=== PATIENT | female | born 1935 | race Asian ===

== ENCOUNTER 2018-08-19 15:34 | Observation (INO) | payer MEDICARE ==
[~2018-08-19] VITALS: Ht 160 cm; Wt 53.5 kg
[~2018-08-19 15:34] MED LIST: Z.0.AMLODIPINE BESYL PO; Z.0.GEMFIBROZIL600 M PO; Z.1.DIOVAN HCT 1601 PO
--- OUTSIDE RECORDS SUMMARY | 2018-08-19 15:38 | XMS REPORT | Summary of Care ---
Author Organization Unknown Address Unknown Phone Unavailable Encounter HQ Encntr_alijose(FIN) [id number] Date(s): 04/10/15 - 04/10/15 [facility] Outpatient Imaging [address] [phone] Discharge Disposition: Home Physician Attending: Jalil Rutherford MD Vital Signs No data available for this section Problem List Condition Effective Dates Status Health Status Informant AA (aortic Resolved aneurysm)(Confirmed) Chronic Resolved constipation(Confirm ed) GERD Resolved (gastroesophageal reflux disease)(Confirmed) High Resolved triglycerides(Confir med) HTN Resolved (hypertension)(Confi rmed) Hypothyroidism(Confi Resolved rmed) Irritable Resolved bladder(Confirmed) Weight Active loss(Confirmed) Allergies, Adverse Reactions, Alerts Substance Reaction Severity Status NKDA Active Medications No data available for this section Results No data available for this section Immunizations No data available for this section Procedures Procedure Date Related Diagnosis Body Site Total thyroidectomy Social History Social History Type Response Smoking Status Never smoker; Exposure to Tobacco Smoke None; Cigarette Smoking Last 365 Days No; Reg Smoking Cessation Counseling No Assessment and Plan No data available for this section
--- OUTSIDE RECORDS SUMMARY | 2018-08-19 15:38 | XMS REPORT | Summary of Care ---
Author Author [facility] Organization [facility] Address Unknown Phone Unavailable Encounter HQ Encntr_alijose(FIN) [id number] Date(s): 11/26/16 - 11/26/16 [facility] [address] [place] [address]- Discharge Disposition: Home or Self Care Attending Physician: Gianna Nogueira MD Admitting Physician: Gianna Nogueira MD Vital Signs No data available for [...]
--- OUTSIDE RECORDS SUMMARY | 2018-08-19 15:38 | XMS REPORT | Summary of Care ---
Author Author [facility] Address Unknown Phone Unavailable Encounter HQ Encntr_alias(FIN) [id number] Date(s): 08/02/17 - 08/02/17 [facility] [address] [place] [address]- [phone] Discharge Disposition: Home or Self Care Attending Physician: Gianna Nogueira MD Vital Signs No [...]
--- OUTSIDE RECORDS SUMMARY | 2018-08-19 15:38 | XMS REPORT | Summary of Care ---
Author Organization Unknown Address Unknown Phone Unavailable Encounter HQ Mari(ALEXANDER) [id number] Date(s): 10/26/14 - 10/30/14 [facility] [address] Discharge Disposition: Home Physician Attending: Dylan Gonzalez MD Physician Admitting: Dylan Gonzalez MD Reason for Visit HYPONATREMIA, HYPOKALEMIA, GENERALIZED WEAKNESS Vital Signs 1 2 3 Most recent to oldest [Reference Range]: 172.72 cm (10/26/14 9:03 AM) Height 47.008 kg (10/30/14 5:06 AM) 50.006 kg (10/29/14 4:00 AM) Current Weight 97.4 DegF (10/30/14 8:22 AM) 98.2 DegF (10/30/14 4:00 AM) 98.5 DegF (10/30/14 12:00 AM) Temperature Oral [96.4-99.1 DegF] 143 mmHg *HI* (10/30/14 8:22 AM) 152 mmHg *HI* (10/30/14 4:00 AM) 160 mmHg *HI* (10/30/14 12:00 AM) Systolic Blood Pressure [90-140 mmHg] 67 mmHg (10/30/14 8:22 AM) 74 mmHg (10/30/14 4:00 AM) 79 mmHg (10/30/14 12:00 AM) Diastolic Blood Pressure [60-90 mmHg] 16 BRMIN (10/30/14 8:22 AM) 16 BRMIN (10/30/14 4:00 AM) 16 BRMIN (10/30/14 12:00 AM) Respiratory Rate [14-20 BRMIN] 64 bpm (10/30/14 8:22 AM) 66 bpm (10/30/14 4:00 AM) 65 bpm (10/30/14 12:00 AM) Peripheral Pulse Rate [60-100 bpm] 52 kg (10/26/14 1:10 PM) Weight Problem List Condition Effective Dates Status Health Status Informant AA (aortic Resolved aneurysm)(Confirmed) Chronic Resolved constipation(Confirm ed) GERD Resolved (gastroesophageal reflux disease)(Confirmed) High Resolved triglycerides(Confir med) HTN Resolved (hypertension)(Confi rmed) Hypothyroidism(Confi Resolved rmed) Irritable Resolved bladder(Confirmed) Weight Active loss(Confirmed) Allergies, Adverse Reactions, Alerts Substance Reaction Severity Status NKDA Active Medications aspirin 81 mg tablet, enteric coated 81 mg=1 tab, PO, Daily, # 0 tab, 0 Refill(s) Start Date: 10/26/14 Status: Ordered BD Normal Saline Flush 5 mL, Route: IV, Drug Form: INJ, PRN, PRN Line Flush, Start date: 10/26/14 16:19 :00, Duration: 30 day, Stop date: 11/25/14 16:18:00 Notes: (Same as: BD Posiflush) Start Date: 10/26/14 Stop Date: 10/30/14 Status: Discontinued Diovan 160 mg oral tablet 160 mg=1 tab, PO, Daily, # 30 tab, 0 Refill(s) Start Date: 10/26/14 Status: Ordered heparin 5,000 unit, 1 mL, Route: SUB-Q, Drug form: INJ, Q12H, Dosing Weight 52, kg, Star t date: 10/26/14 21:00:00, Duration: 30 day, Stop date: 11/25/14 9:00:00 Notes: porcine heparin Start Date: 10/26/14 Stop Date: 10/30/14 Status: Discontinued K-Dur 20 40 mEq, 2 tab, Route: PO, Drug form: ERTAB, ONCE, Dosing Weight 52, kg, Start da te: 10/26/14 15:08:00, Stop date: 10/26/14 15:08:00 Notes: (Same as: K-Dur 20)"Do Not Crush" With food and full glass of water Start Date: 10/26/14 Stop Date: 10/26/14 Status: Completed K-Dur 20 20 mEq, 1 tab, Route: PO, Drug form: ERTAB, BID, Dosing Weight 52, kg, Start abdirahman e: 10/27/14 17:00:00, Duration: 30 day, Stop date: 11/26/14 9:00:00 Notes: (Same as: K-Dur 20)"Do Not Crush" With food and full glass of water Start Date: 10/27/14 Stop Date: 10/29/14 Status: Discontinued K-Dur 20 40 mEq, 2 tab, Route: PO, Drug form: ERTAB, ONCE, Dosing Weight 52, kg, Start da te: 10/27/14 14:24:00, Stop date: 10/27/14 14:24:00 Notes: (Same as: K-Dur 20)"Do Not Crush" With food and full glass of water Start Date: 10/27/14 Stop Date: 10/27/14 Status: Completed lactulose 10 g/15 mL oral syrup 10 gm, 15 mL, Route: PO, Drug Form: SYRP, Dosing Weight 52, kg, BID, Start date: 10/29/14 11:30:00, Duration: 30 day, Stop date: 11/28/14 9:00:00 Notes: (Same as:Chronulac) Start Date: 10/29/14 Stop Date: 10/30/14 Status: Discontinued levothyroxine 88 microgram, 1 tab, Route: PO, Drug form: TAB, Q630AM, Dosing Weight 52, kg, St art date: 10/27/14 9:00:00, Stop date: 11/25/14 6:30:00 Notes: Take 1 hour before or 2 hours after meal; Enteral feeds may interefere wi th the absorption of this medication. (Same as:Synthroid) Start Date: 10/27/14 Stop Date: 10/30/14 Status: Discontinued levothyroxine 100 mcg (0.1 mg) oral tablet 100 microgram=1 tab, PO, Daily, # 60 tab, 0 Refill(s) Start Date: 10/26/14 Status: Ordered Lopid 600 mg, 1 tab, Route: PO, Drug form: TAB, Q48H, Dosing Weight 52, kg, Start date : 10/26/14 14:00:00, Duration: 30 day, Stop date: 11/23/14 14:00:00 Notes: (Same as: Lopid) Start Date: 10/26/14 Stop Date: 10/30/14 Status: Discontinued Lopid 600 mg oral tablet 600 mg=1 tab, PO, Q48H, # 60 tab, 0 Refill(s) Start Date: 10/26/14 Status: Ordered MiraLax oral powder for reconstitution 17 gm, PO, Daily, # 255 gm, 0 Refill(s) Start Date: 10/26/14 Status: Ordered morphine Sulfate 1 mg, 0.5 mL, Route: IV, Drug form: INJ, Q2H, Dosing Weight 52, kg, PRN Pain Sco re 7-10, Start date: 10/26/14 13:55:00, Duration: 30 day, Stop date: 11/25/14 13 :54:00 Notes: (Same as:MORPhine Sulfate) Start Date: 10/26/14 Stop Date: 10/30/14 Status: Discontinued Norvasc 5 mg, 1 tab, Route: PO, Drug form: TAB, Daily, Dosing Weight 52, kg, Start date: 10/27/14 9:00:00, Duration: 30 day, Stop date: 11/25/14 9:00:00 Notes: (Same as: Norvasc) Start Date: 10/27/14 Stop Date: 10/30/14 Status: Discontinued Norvasc 5 mg oral tablet 5 mg=1 tab, PO, Daily, # 30 tab, 0 Refill(s) Start Date: 10/26/14 Status: Ordered NS + KCL 20mEq/L 1000ml (Premix) 1,000 mL 1,000 mL, Rate: 75 ml/hr, Infuse over: 13.3 hr, Route: IV, Dosing Weight 52 kg, Total Volume: 1,000, Start date: 10/27/14 14:24:00, Duration: 30 day, Stop date: 11/26/14 14:23:00 Notes: PREMIX IV - Do Not Alter Start Date: 10/27/14 Stop Date: 10/28/14 Status: Discontinued NS 1000 mL 1,000 mL, Rate: 75 ml/hr, Infuse over: 13.3 hr, Route: IV, Dosing Weight 52 kg, Total Volume: 1,000, Start date: 10/27/14 14:13:00, Duration: 30 day, Stop date: 11/26/14 14:12:00 Start Date: 10/27/14 Stop Date: 10/27/14 Status: Discontinued omeprazole 20 mg, Route: PO, Drug form: DRC, Daily, Dosing Weight 52, kg, Start date: 10/27 9:00:00, Duration: 30 day, Stop date: 11/25/14 9:00:00 Start Date: 10/27/14 Stop Date: 10/26/14 Status: Discontinued omeprazole 20 mg oral delayed release capsule 20 mg=1 cap, PO, Daily, # 30 cap, 0 Refill(s) Start Date: 10/26/14 Stop Date: 11/25/14 Status: Ordered ondansetron 4 mg, 2 mL, Route: IVP, Drug form: INJ, ONCE, Dosing Weight 53.636, kg, Priority : STAT, Start date: 10/26/14 9:25:00, Stop date: 10/26/14 9:25:00 Notes: (Same as: Zofran) Start Date: 10/26/14 Stop Date: 10/26/14 Status: Completed Pepcid 20 mg, 1 tab, Route: PO, Drug form: TAB, Daily, Start date: 10/27/14 9:00:00, Du ration: 30 day, Stop date: 11/25/14 9:00:00 Notes: (Same as: Pepcid) Start Date: 10/27/14 Stop Date: 10/30/14 Status: Discontinued potassium chloride 40 mEq, 2 tab, Route: PO, Drug form: ERTAB, ONCE, Dosing Weight 52, kg, Start da te: 10/27/14 5:57:00, Stop date: 10/27/14 5:57:00 Notes: (Same as: K-Dur 20)"Do Not Crush" With food and full glass of water Start Date: 10/27/14 Stop Date: 10/27/14 Status: Completed potassium chloride 20 mEq, 100 mL, Route: IVPB, Drug form: INJ, Q2H, Dosing Weight 52, kg, Total do se=80 mEq, Start date: 10/26/14 14:00:00, Duration: 4 doses or times, Stop date: 10/26/14 20:00:00 Notes: (Same as: KCL) Infuse no faster than 10 mEq/hr if given peripherally.Rec ommended to use Electrolyte Replacement MPPPotassium level 2.5 - 3 mEq/L:Potass ium chloride 20mEq/100 ml IV infused over 2 hour x 4 doses. Total dose=80 mEqNot elizabeth team. Start Date: 10/26/14 Stop Date: 10/26/14 Status: Completed Protonix 40 mg, 1 tab, Route: PO, Drug form: ECTAB, Before Dinner, Start date: 10/26/14 1 6:30:00, Duration: 30 day, Stop date: 11/24/14 16:30:00 Notes: Tablet should not be chewed or crushed.(Same as: Protonix) Start Date: 10/26/14 Stop Date: 10/30/14 Status: Discontinued Saline Flush 0.9% 10 mL, Route: IVP, Drug Form: INJ, Dosing Weight 53.636, kg, PRN, PRN Line Flush , Start date: 10/26/14 9:25:00, Duration: 30 day, Stop date: 11/25/14 9:24:00 Notes: (Same as: BD Posiflush) Start Date: 10/26/14 Stop Date: 10/30/14 Status: Discontinued Sodium Chloride 0.9% (Bolus) IV 1,000 mL, 1,000 ml/hr, Infuse Over: 1 hr, Route: IV, 1,000, Drug form: INJ, ONCE , Priority: STAT, Dosing Weight 53.636 kg, Start date: 10/26/14 9:25:00, Duratio n: 1 doses or times, Stop date: 10/26/14 9:25:00 Start Date: 10/26/14 Stop Date: 10/26/14 Status: Completed Sodium Chloride 0.9% (Bolus) IV 1,000 mL, 1000 ml/hr, Infuse Over: 1 hr, Route: IV, 1,000, Drug form: INJ, ONCE, Priority: STAT, Dosing Weight 53.636 kg, Start date: 10/26/14 10:07:00, Duratio n: 1 doses or times, Stop date: 10/26/14 10:07:00 Start Date: 10/26/14 Stop Date: 10/26/14 Status: Completed Sodium Chloride 0.9% IV 25 mL, Route: IV, Start date: 10/26/14 16:19:00, Duration: 30 day, Stop date: 16:18:00, PRN Line Flush Start Date: 10/26/14 Stop Date: 10/30/14 Status: Discontinued Sodium Chloride 3% (Hypertonic) IV 125 mL + empty container 1 bag 125 mL, Rate: 25 ml/hr, Infuse over: 5 hr, Route: IV, Dosing Weight 52 kg, Total Volume: 125, Start date: 10/26/14 14:48:00, Duration: 1 doses or times, Stop da te: 10/27/14 0:47:00 Notes: " Start Date: 10/26/14 Stop Date: 10/26/14 Status: Completed Tylenol 650 mg, 2 tab, Route: PO, Drug form: TAB, Q6H, Dosing Weight 52, kg, PRN Pain Sc ore 1-3, Start date: 10/26/14 13:55:00, Duration: 30 day, Stop date: 11/25/14 13 :54:00 Notes: Do not exceed 4 gm/day. (Same as: Tylenol) Start Date: 10/26/14 Stop Date: 10/30/14 Status: Discontinued Zantac 150 oral tablet 150 mg=1 tab, PO, Daily, # 60 tab, 0 Refill(s) Start Date: 10/26/14 Status: Ordered Zantac 150 oral tablet 150 mg, 1 tab, Route: PO, Drug form: TAB, Daily, Dosing Weight 52, kg, Start abdirahman e: 10/27/14 9:00:00, Duration: 30 day, Stop date: 11/25/14 9:00:00 Start Date: 10/27/14 Stop Date: 10/26/14 Status: Discontinued Results ELECTROLYTES 1 2 3 Most recent to oldest [Reference Range]: 136 mEq/L (10/30/14 3:48 AM) 131 mEq/L *LOW* (10/29/14 6:28 AM) 131 mEq/L *LOW* (10/28/14 8:54 PM) Sodium Lvl [135-145 mEq/L] 4.6 mEq/L (10/30/14 3:48 AM) 4.2 mEq/L (10/29/14 6:28 AM) 4.0 mEq/L (10/28/14 8:54 PM) Potassium Lvl [3.5-5.1 mEq/L] 97 mEq/L (10/30/14 3:48 AM) 96 mEq/L (10/29/14 6:28 AM) 98 mEq/L (10/28/14 8:54 PM) Chloride Lvl [95-109 mEq/L] 30 mEq/L (10/30/14 3:48 AM) 28 mEq/L (10/29/14 6:28 AM) 24 mEq/L (10/28/14 8:54 PM) CO2 [24-32 mEq/L] 13.6 mEq/L (10/30/14 3:48 AM) 11.2 mEq/L (10/29/14 6:28 AM) 13.0 mEq/L (10/28/14 8:54 PM) AGAP [10.0-20.0 mEq/L] CHEM PANEL 1 2 3 Most recent to oldest [Reference Range]: 0.6 mg/dL (10/30/14 3:48 AM) 0.5 mg/dL (10/29/14 6:28 AM) 0.8 mg/dL (10/28/14 8:54 PM) Creatinine Lvl [0.5-1.4 mg/dL] 86 mL/min/1.73m2 1 *NA* (10/30/14 3:48 AM) 92 mL/min/1.73m2 2 *NA* (10/29/14 6:28 AM) 70 mL/min/1.73m2 3 *NA* (10/28/14 8:54 PM) eGFR 12 mg/dL (10/30/14 3:48 AM) 9 mg/dL (10/29/14 6:28 AM) 10 mg/dL (10/28/14 8:54 PM) BUN [7-22 mg/dL] 34 *HI* (10/26/14 9:00 AM) B/C Ratio [6-25] 86 mg/dL 4 (10/30/14 3:48 AM) 110 mg/dL 5 *HI* (10/29/14 6:28 AM) 165 mg/dL 6 *HI* (10/28/14 8:54 PM) Glucose Lvl [70-99 mg/dL] 1.9 mg/dL *LOW* (10/26/14 8:23 PM) Uric Acid [2.5-7.0 mg/dL] 6.5 g/dL (10/26/14 9:00 AM) Total Protein [6.4-8.4 g/dL] 4.0 g/dL (10/26/14 9:00 AM) Albumin Lvl [3.5-5.0 g/dL] 2.5 g/dL (10/26/14 9:00 AM) Globulin [2.0-4.0 g/dL] 1.6 (10/26/14 9:00 AM) A/G Ratio [0.7-1.6] 8.9 mg/dL (10/30/14 3:48 AM) 8.0 mg/dL *LOW* (10/29/14 6:28 AM) 7.8 mg/dL *LOW* (10/28/14 8:54 PM) Calcium Lvl [8.5-10.5 mg/dL] 2.5 mg/dL (10/26/14 9:00 AM) Phosphorus [2.5-4.5 mg/dL] 2.0 mg/dL (10/29/14 6:28 AM) 2.1 mg/dL (10/28/14 4:30 AM) 2.0 mg/dL (10/27/14 3:19 AM) Magnesium Lvl [1.8-2.4 mg/dL] 46 unit/L (10/26/14 9:00 AM) ALT [0-65 unit/L] 52 unit/L *HI* (10/26/14 9:00 AM) AST [0-37 unit/L] 44 unit/L (10/26/14 9:00 AM) Alk Phos [39-136 unit/L] 2.3 mg/dL *HI* (10/26/14 9:00 AM) Bili Total [0.2-1.3 mg/dL] 249 mOsm/kg *LOW* (10/26/14 8:23 PM) Osmolality [280-300 mOsm/kg] 1Result Comment: The eGFR is calculated using the CKD-EPI formula. In most young, healthy individuals the eGFR will be >90 mL/min/1.73m2. The eGFR declines with age. An eGFR of 60-89 may be normal in some populations, particularly the elderly, for whom the CKD-EPI formula has not been extensively validated. Use of the eGFR is not recommended in the following populations: Individuals with unstable creatinine concentrations, including patients and those with serious co-morbid conditions. Patients with extremes in muscle mass or diet. The data above are obtained from the National Kidney Disease Education Program ( NKDEP) which additionally recommends that when the eGFR is used in patients with extremes of body mass index for purposes of drug dosing, the eGFR should be mul tiplied by the estimated BMI. 2Result Comment: The eGFR is calculated using the CKD-EPI formula. In most young, healthy individuals the eGFR will be >90 mL/min/1.73m2. The eGFR declines with age. An eGFR of 60-89 may be normal in some populations, particularly the elderly, for whom the CKD-EPI formula has not been extensively validated. Use of the eGFR is not recommended in the following populations: Individuals with unstable creatinine concentrations, including patients and those with serious co-morbid conditions. Patients with extremes in muscle mass or diet. The data above are obtained from the National Kidney Disease Education Program ( NKDEP) which additionally recommends that when the eGFR is used in patients with extremes of body mass index for purposes of drug dosing, the eGFR should be mul tiplied by the estimated BMI. 3Result Comment: The eGFR is calculated using the CKD-EPI formula. In most young, healthy individuals the eGFR will be >90 mL/min/1.73m2. The eGFR declines with age. An eGFR of 60-89 may be normal in some populations, particularly the elderly, for whom the CKD-EPI formula has not been extensively validated. Use of the eGFR is not recommended in the following populations: Individuals with unstable creatinine concentrations, including patients and those with serious co-morbid conditions. Patients with extremes in muscle mass or diet. The data above are obtained from the National Kidney Disease Education Program ( NKDEP) which additionally recommends that when the eGFR is used in patients with extremes of body mass index for purposes of drug dosing, the eGFR should be mul tiplied by the estimated BMI. 4Interpretive Data: Adult reference range values reflect the clinical guidelines of the [place] [employer]. 5Interpretive Data: Adult reference range values reflect the clinical guidelines of the [place] [employer]. 6Interpretive Data: Adult reference range values reflect the clinical guidelines of the [place] [employer]. CARDIAC ENZYMES 1 2 3 Most recent to oldest [Reference Range]: 996 unit/L *HI* (10/26/14 9:00 AM) Total CK [12-191 unit/L] 9.0 ng/mL *HI* (10/26/14 9:00 AM) CK MB [0.5-3.6 ng/mL] 0.9 (10/26/14 9:00 AM) CK MB Index [0.0-2.5] 0.02 ng/mL (10/26/14 9:00 AM) Troponin-I [0.00-0.40 ng/mL] 61 pg/mL 7 (10/26/14 9:00 AM) BNP [<=100 pg/mL] 7Interpretive Data: Elevated results are in line with increasing severity of congestive heart failure. Minor elevations between 100 and 300 may be seen with Myocardial Ischemia, Sodium retaining drugs, and compensated/treated heart failure. THYROID PANEL 1 2 3 Most recent to oldest [Reference Range]: 1.47 ng/dL *HI* (10/27/14 3:19 AM) T4 Free [0.76-1.46 ng/dL] 0.021 uIU/mL *LOW* (10/26/14 8:23 PM) TSH [0.360-3.740 uIU/mL] URINE CHEM 1 2 3 Most recent to oldest [Reference Range]: 50.2 mg/dL 8 *NA* (10/27/14 4:52 PM) 110.5 mg/dL 9 *NA* (10/26/14 9:00 AM) U Creatinine 32 mEq/L 10 *NA* (10/27/14 4:52 PM) 36 mEq/L 11 *NA* (10/26/14 9:00 AM) U Sodium 25.7 mEq/L 12 *NA* (10/27/14 4:52 PM) 51.5 mEq/L 13 *NA* (10/26/14 9:00 AM) U Potassium 359 mOsm/kg (10/27/14 4:52 PM) 617 mOsm/kg (10/26/14 9:00 AM) U Osmolality [300-800 mOsm/kg] 8Interpretive Data: No established reference ranges. 9Interpretive Data: No established reference ranges. 10Interpretive Data: No established reference ranges. 11Interpretive Data: No established reference ranges. 12Interpretive Data: No established reference ranges. 13Interpretive Data: No established reference ranges. URINE AND STOOL 1 2 3 Most recent to oldest [Reference Range]: Clear (10/26/14 9:00 AM) UA Turbidity [Clear] Yellow *NA* (10/26/14 9:00 AM) UA Color [Yellow] 6.5 (10/26/14 9:00 AM) UA pH [5.0-8.0] 1.016 (10/26/14 9:00 AM) UA Spec Grav [<=1.030] 70 mg/dL *ABN* (10/26/14 9:00 AM) UA Glucose [Negative mg/dL] Moderate *ABN* (10/26/14 9:00 AM) UA Blood [Negative] 20 mg/dL *ABN* (10/26/14 9:00 AM) UA Ketones [Negative mg/dL] 50 mg/dL *ABN* (10/26/14 9:00 AM) UA Protein [Negative mg/dL] <=1.0 mg/dL *NA* (10/26/14 9:00 AM) UA Urobilinogen [0.1-1.0 mg/dL] Negative *NA* (10/26/14 9:00 AM) UA Bili [Negative] Negative (10/26/14 9:00 AM) UA Leuk Est [Negative] Negative (10/26/14 9:00 AM) UA Nitrite [Negative] 2 /HPF (10/26/14 9:00 AM) UA WBC [0-5 /HPF] 42 /HPF *HI* (10/26/14 9:00 AM) UA RBC [0-2 /HPF] None Seen *NA* (10/26/14 9:00 AM) UA Sq Epi Few /LPF *NA* (10/26/14 9:00 AM) UA Mucus [None Seen /LPF] HEMATOLOGY 1 2 3 Most recent to oldest [Reference Range]: 4.6 K/CMM (10/29/14 6:28 AM) 6.6 K/CMM (10/27/14 3:19 AM) 12.9 K/CMM *HI* (10/26/14 9:00 AM) WBC [3.7-10.4 K/CMM] 4.10 M/CMM *LOW* (10/29/14 6:28 AM) 3.88 M/CMM *LOW* (10/27/14 3:19 AM) 4.17 M/CMM *LOW* (10/26/14 9:00 AM) RBC [4.20-5.40 M/CMM] 13.3 g/dL (10/29/14 6:28 AM) 12.2 g/dL (10/27/14:19 AM) 13.4 g/dL (10/26/14 9:00 AM) Hgb [12.0-16.0 g/dL] 38.0 % (10/29/14 6:28 AM) 36.7 % (10/27/14:19 AM) 40.0 % (10/26/14 9:00 AM) Hct [36.0-48.0 %] 92.6 fL (10/29/14:28 AM) 94.7 fL (10/27/14:19 AM) 96.0 fL (10/26/14 9:00 AM) MCV [80.0-98.0 fL] 32.3 pg *HI* (10/29/14 6:28 AM) 31.5 pg *HI* (10/27/14:19 AM) 32.2 pg *HI* (10/26/14 9:00 AM) MCH [27.0-31.0 pg] 34.9 g/dL (10/29/14 6:28 AM) 33.2 g/dL (10/27/14:19 AM) 33.5 g/dL (10/26/14 9:00 AM) MCHC [32.0-36.0 g/dL] 14.1 % (10/29/14 6:28 AM) 13.7 % (10/27/14 3:19 AM) 13.6 % (10/26/14 9:00 AM) RDW [11.5-14.5 %] 191 K/CMM (10/29/14 6:28 AM) 170 K/CMM (10/27/14 3:19 AM) 167 K/CMM (10/26/14 3:24 PM) Platelet [133-450 K/CMM] 7.0 fL *LOW* (10/29/14 6:28 AM) 7.5 fL (10/27/14 3:19 AM) 7.3 fL *LOW* (10/26/14 9:00 AM) MPV [7.4-10.4 fL] 87.9 % *HI* (10/26/14 9:00 AM) Segs [45.0-75.0 %] 7.7 % *LOW* (10/26/14 9:00 AM) Lymphocytes [20.0-40.0 %] 4.2 % (10/26/14 9:00 AM) Monocytes [2.0-12.0 %] 0.0 % (10/26/14 9:00 AM) Eosinophils [0.0-4.0 %] 0.2 % (10/26/14 9:00 AM) Basophils [0.0-1.0 %] 11.3 K/CMM *HI* (10/26/14 9:00 AM) Segs-Bands # [1.5-8.1 K/CMM] 1.0 K/CMM (10/26/14 9:00 AM) Lymphocytes # [1.0-5.5 K/CMM] 0.5 K/CMM (10/26/14 9:00 AM) Monocytes # [0.0-0.8 K/CMM] 0.0 K/CMM (10/26/14 9:00 AM) Eosinophils # [0.0-0.5 K/CMM] 0.0 K/CMM (10/26/14 9:00 AM) Basophils # [0.0-0.2 K/CMM] 1+ *ABN* (10/26/14 9:00 AM) Anisocyte [None Seen] 1+ *ABN* (10/26/14 9:00 AM) Macrocyte [None Seen] Normal (10/26/14 9:00 AM) Plt Morph 14.7 seconds (10/26/14 9:00 AM) PT [12.0-14.7 seconds] 1.14 14 (10/26/14 9:00 AM) INR [0.85-1.17] 28.0 seconds 15 (10/26/14 9:00 AM) PTT [22.9-35.8 seconds] 14Interpretive Data: RECOMMENDED RANGES FOR PROTIME INR: 2.0-3.0 for most medical and surgical thromboembolic states. 2.5-3.5 for artificial heart valves and recurrent embolism. INR SHOULD BE USED ONLY FOR PATIENTS ON STABLE ANTICOAGULANT THERAPY. 15Interpretive Data: Heparin Therapeutic Range: 57 - 92 Seconds Medications Administered During Your Visit No data available for this section Immunizations No data available for this section Procedures Procedure Type Body Site Date of Procedure Related Diagnosis Total thyroidectomy Social History Social History Type Response Smoking Status Never smoker, Exposure to Tobacco Smoke None, Cigarette Smoking Last 365 Days No, Reg Smoking Cessation Counseling No
--- OUTSIDE RECORDS SUMMARY | 2018-08-19 15:38 | XMS REPORT | Continuity of Care Document ---
Author Author 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 09/02/2017 [facility] DIZZY Active 10/26/2014 [facility] HYPONATREMIA, HYPOKALEMIA, GENERALIZED W Active 10/26/2014 [facility] M54.17 Active 10/25/2000 [facility] AA (<span ID="[id number]">Confirmed</span>) Resolved Problem 09/09/2017 [facility] Chronic constipation Resolved Problem 09/09/2017 [facility] GERD (<span ID="[id number]">Confirmed</span>) Resolved Problem 09/09/2017 [facility] High triglycerides Resolved Problem 09/09/2017 [facility] HTN (<span ID="[id number]">Confirmed</span>) Resolved Problem 09/09/2017 [facility] Hypothyroidism Resolved Problem 09/09/2017 [facility] Irritable bladder Resolved Problem 09/09/2017 [facility] Weight loss Active Problem 09/09/2017 [facility] MALAISE AND FATIGUE NEC Active [facility] RADICULOPATHY, LUMBOSACRAL REGION Active [facility] Medications Medication Details Route Status Patient Instructions Ordering Provider Order Date Source Lactulose 667 MG/ML Oral Solution 10 gm, 15 mL, Route: PO, Drug Form: SYRP, Dosing Weight 52, kg, BID, Start date: 10/29/14 11:30:00, Duration: 30 day, Stop date: 11/28/14 9:00:00Notes: (Same as:Chronulac) No Longer Active 10/29/2014 [facility] K-Dur 20 20 mEq, 1 tab, Route: PO, Drug form: ERTAB, BID, Dosing Weight 52, kg, Start date: 10/27/14 17:00:00, Duration: 30 day, Stop date: 11/26/14 9:00:00Notes: (Same as: K-Dur 20) "Do Not Crush" With food and full glass of water No Longer Active 10/27/2014 [facility] K-Dur 20 40 mEq, 2 tab, Route: PO, Drug form: ERTAB, ONCE, Dosing Weight 52, kg, Start date: 10/27/14 14:24:00, Stop date: 10/27/14 14:24:00Notes: (Same as: K-Dur 20) "Do Not Crush" With food and full glass of water Inactive 10/27/2014 [facility] NS + KCL 20mEq/L 1000ml (Premix) 1,000 mL 1,000 mL, Rate: 75 ml/hr, Infuse over: 13.3 hr, Route: IV, Dosing Weight 52 kg, Total Volume: 1,000, Start date: 10/27/14 14:24:00, Duration: 30 day, Stop date: 11/26/14 14:23:00Notes: PREMIX IV - Do Not Alter No Longer Active 10/27/2014 [facility] NS 1000 mL 1,000 mL, Rate: 75 ml/hr, Infuse over: 13.3 hr, Route: IV, Dosing Weight 52 kg, Total Volume: 1,000, Start date: 10/27/14 14:13:00, Duration: 30 day, Stop date: 11/26/14 14:12:00 Inactive 10/27/2014 [facility] Ranitidine 150 MG Oral Tablet [Zantac] 150 mg, 1 tab, Route: PO, Drug form: TAB, Daily, Dosing Weight 52, kg, Start date: 10/27/14 9:00:00, Duration: 30 day, Stop date: 11/25/14 9:00:00 No Longer Active 10/27/2014 [facility] Omeprazole 20 mg, Route: PO, Drug form: DRC, Daily, Dosing Weight 52, kg, Start date: 10/27/14 9:00:00, Duration: 30 day, Stop date: 11/25/14 9:00:00 No Longer Active 10/27/2014 [facility] Thyroxine 88 microgram, 1 tab, Route: PO, Drug form: TAB, Q630AM, Dosing Weight 52, kg, Start date: 10/27/14 9:00:00, Stop date: 11/25/14 6:30:00Notes: Take 1 hour before or 2 hours after meal; Enteral feeds may interefere with the absorption of this medication. (Same as:Synthroid) No Longer Active 10/27/2014 [facility] Norvasc 5 mg, 1 tab, Route: PO, Drug form: TAB, Daily, Dosing Weight 52, kg, Start date: 10/27/14 9:00:00, Duration: 30 day, Stop date: 11/25/14 9:00:00Notes: (Same as: Norvasc) No Longer Active 10/27/2014 [facility] Pepcid 20 mg, 1 tab, Route: PO, Drug form: TAB, Daily, Start date: 10/27/14 9:00:00, Duration: 30 day, Stop date: 11/25/14 9:00:00Notes: (Same as: Pepcid) No Longer Active 10/27/2014 [facility] Potassium Chloride 40 mEq, 2 tab, Route: PO, Drug form: ERTAB, ONCE, Dosing Weight 52, kg, Start date: 10/27/14 5:57:00, Stop date: 10/27/14 5:57:00Notes: (Same as: K-Dur 20) "Do Not Crush" With food and full glass of water Inactive 10/27/2014 [facility] heparin, porcine 5,000 unit, 1 mL, Route: SUB-Q, Drug form: INJ, Q12H, Dosing Weight 52, kg, Start date: 10/26/14 21:00:00, Duration: 30 day, Stop date: 11/25/14 9:00:00Notes: porcine heparin No Longer Active 10/27/2014 [facility] Protonix 40 mg, 1 tab, Route: PO, Drug form: ECTAB, Before Dinner, Start date: 10/26/14 16:30:00, Duration: 30 day, Stop date: 11/24/14 16:30:00Notes: Tablet should not be chewed or crushed. (Same as: Protonix) No Longer Active 10/26/2014 [facility] Sodium Chloride 0.9% IV 25 mL, Route: IV, Start date: 10/26/14 16:19:00, Duration: 30 day, Stop date: 11/25/14 16:18:00, PRN Line Flush No Longer Active 10/26/2014 [facility] BD Normal Saline Flush 5 mL, Route: IV, Drug Form: INJ, PRN, PRN Line Flush, Start date: 10/26/14 16:19:00, Duration: 30 day, Stop date: 11/25/14 16:18:00Notes: (Same as: BD Posiflush) No Longer Active 10/26/2014 [facility] K-Dur 20 40 mEq, 2 tab, Route: PO, Drug form: ERTAB, ONCE, Dosing Weight 52, kg, Start date: 10/26/14 15:08:00, Stop date: 10/26/14 15:08:00Notes: (Same as: K-Dur 20) "Do Not Crush" With food and full glass of water Inactive 10/26/2014 [facility] Sodium Chloride 3% (Hypertonic) IV 125 mL + empty container 1 bag 125 mL, Rate: 25 ml/hr, Infuse over: 5 hr, Route: IV, Dosing Weight 52 kg, Total Volume: 125, Start date: 10/26/14 14:48:00, Duration: 1 doses or times, Stop date: 10/27/14 0:47:00Notes: " Inactive 10/26/2014 [facility] Potassium Chloride 20 mEq, 100 mL, Route: IVPB, Drug form: INJ, Q2H, Dosing Weight 52, kg, Total dose=80 mEq, Start date: 10/26/14 14:00:00, Duration: 4 doses or times, Stop date: 10/26/14 20:00:00Notes: (Same as: KCL) Infuse no faster than 10 mEq/hr if given peripherally. Recommended to use Electrolyte Replacement MPP Potassium level 2.5 - 3 mEq/L: Potassium chloride 20mEq/100 ml IV infused over 2 hour x 4 doses. Total dose=80 mEq Notify team. Inactive 10/26/2014 [facility] Lopid 600 mg, 1 tab, Route: PO, Drug form: TAB, Q48H, Dosing Weight 52, kg, Start date: 10/26/14 14:00:00, Duration: 30 day, Stop date: 11/23/14 14:00:00Notes: (Same as: Lopid) No Longer Active 10/26/2014 [facility] Morphine 1 mg, 0.5 mL, Route: IV, Drug form: INJ, Q2H, Dosing Weight 52, kg, PRN Pain Score 7-10, Start date: 10/26/14 13:55:00, Duration: 30 day, Stop date: 11/25/14 13:54:00Notes: (Same as:MORPhine Sulfate) No Longer Active 10/26/2014 [facility] Tylenol 650 mg, 2 tab, Route: PO, Drug form: TAB, Q6H, Dosing Weight 52, kg, PRN Pain Score 1-3, Start date: 10/26/14 13:55:00, Duration: 30 day, Stop date: 11/25/14 13:54:00Notes: Do not exceed 4 gm/day. ( Same as: Tylenol) No Longer Active 10/26/2014 [facility] POLYETHYLENE GLYCOL 3350 142 MG/ML Oral Solution [Miralax] 17 gm, PO, Daily, # 255 gm, 0 Refill(s) Active 10/26/2014 [facility] Aspirin 81 MG Enteric Coated Tablet 81 mg=1 tab, PO, Daily, # 0 tab, 0 Refill(s) Active 10/26/2014 [facility] Gemfibrozil 600 MG Oral Tablet [Lopid] 600 mg=1 tab, PO, Q48H, # 60 tab, 0 Refill(s) Active 10/26/2014 [facility] levothyroxine 100 mcg (0.1 mg) oral tablet 100 microgram=1 tab, PO, Daily, # 60 tab, 0 Refill(s) Active 10/26/2014 [facility] valsartan 160 MG Oral Tablet [Diovan] 160 mg=1 tab, PO, Daily, # 30 tab, 0 Refill(s) Active 10/26/2014 [facility] omeprazole 20 mg oral delayed release capsule 20 mg=1 cap, PO, Daily, # 30 cap, 0 Refill(s) Active 10/26/2014 [facility] Amlodipine 5 MG Oral Tablet [Norvasc] 5 mg=1 tab, PO, Daily, # 30 tab, 0 Refill(s) Active 10/26/2014 [facility] Ranitidine 150 MG Oral Tablet [Zantac] 150 mg=1 tab, PO, Daily, # 60 tab, 0 Refill(s) Active 10/26/2014 [facility] Sodium Chloride 0.154 MEQ/ML Injectable Solution 1,000 mL, 1000 ml/hr, Infuse Over: 1 hr, Route: IV, 1,000, Drug form: INJ, ONCE, Priority: STAT, Dosing Weight 53.636 kg, Start date: 10/26/14 10:07:00, Duration: 1 doses or times, Stop date: 10/26/14 10:07:00 Inactive 10/26/2014 [facility] Ondansetron 4 mg, 2 mL, Route: IVP, Drug form: INJ, ONCE, Dosing Weight 53.636, kg, Priority: STAT, Start date: 10/26/14 9:25:00, Stop date: 10/26/14 9:25:00Notes: (Same as: Zofran) Inactive 10/26/2014 [facility] Sodium Chloride 0.154 MEQ/ML Injectable Solution 1,000 mL, 1,000 ml/hr, Infuse Over: 1 hr, Route: IV, 1,000, Drug form: INJ, ONCE, Priority: STAT, Dosing Weight 53.636 kg, Start date: 10/26/14 9:25:00, Duration: 1 doses or times, Stop date: 10/26/14 9:25:00 Inactive 10/26/2014 [facility] Saline Flush 0.9% 10 mL, Route: IVP, Drug Form: INJ, Dosing Weight 53.636, kg, PRN, PRN Line Flush, Start date: 10/26/14 9:25:00, Duration: 30 day, Stop date: 11/25/14 9:24:00Notes: (Same as: BD Posiflush) No Longer Active 10/26/2014 [facility] Allergies, Adverse Reactions, Alerts Substance Category Reaction Severity Reaction type Status Date Reported Comments Source Immunizations Immunization Date Given Site Status Last Updated Comments Source Results Order Name Results Value Reference Range Date Interpretation Comments Source Thyroid US Thyroid US EXAM: Thyroid ultrasound. CLINICAL HX: - Z85.850 Personal history of malignant neoplasm of thyroid. Age: 82 years. Gender: Female. TECHNIQUE: Grayscale and doppler sonogram of the thyroid gland. COMPARISON: Thyroid ultrasound: 04/10/2015. FINDINGS: Thyroid plan: Surgically absent. No masses in the thyroidectomy bed. Lymph node(s): Small lymph nodes in the bilateral neck with prominent fatty chhaya and subcentimeter short axis measurements. Other: None. IMPRESSION: 1. Surgically absent thyroid gland. 2. Likely reactive neck lymph nodes. Note: Thyroid Nodule Management Recommendations per ACR TI-RADS -- No f/u or FNA recommended for: -- Cystic nodules. -- Spongiform nodules. -- Mixed cystic and solid, iso/hyperechoic nodules w/o other suspicious features. -- <1.5 cm solid, iso/hyperechoic nodules w/o other suspicious features. -- <1 cm solid, hypoechoic nodules w/o other suspicious features. -- <0.5 cm nodules. -- Additional recommendations: -- </=2 nodules should be biopsied. -- </=4 nodules should be followed. Reference: Keshawn NESBITT, et al. ACR Thyroid Imaging, Reporting and Data System (TI-RADS): White Paper of the ACR TI-RADS Committee. JACR. 2017; 14(5): 587-595. 09/06/2017 - - Read by: Hal Staley MD Dictated Date/time: 09/06/17 13:53 Electronically Signed by: Hal Staley MD 09/06/17 13:54 FINAL REPORT [facility] Spine lumbar wo contrast MRI Spine lumbar wo contrast MRI EXAM: MRI LUMBAR SPINE WITHOUT CONTRAST DATE: 08/02/2017 4:17 PM CDT . ORDERING PHYSICIAN: Gianna Nogueira MD CLINICAL INDICATION: - M54.16 Radiculopathy, lumbar region; TECHNIQUE: Multiplanar, multisequence MRI lumbar spine without IV contrast COMPARISON: Lumbar x-rays of 11/26/2016, CT abdomen pelvis of 11/26/2006 and 03/04/2012 FINDINGS: For the purposes of enumeration, the lowest well formed intervertebral disc was counted as L5-S1 on this exam. INTRASPINAL CONTENTS/CONUS: The conus terminates at L1-L2. No definite dural based lesion. VERTEBRAE: There is a severe (greater than 80%) chronic T12 compression deformity with 3 mm retropulsion of the superior endplate. The remaining lumbar vertebral body heights are maintained. No focal suspicious bone marrow signal abnormality. PARASPINAL SOFT TISSUES: No edema or definite masses. No aortic aneurysm. DISC SPACES, SPINAL CANAL, AND NEURAL FORAMINA: T11-T12: Disc height is maintained. Retropulsed T12 superior endplate flattening the ventral cord contour, the cord signal is normal. Facets are unremarkable. Central canal measures 8 mm. There is mild narrowing of the left neural foramen. T12-L1. Disc height is maintained. There is 2 mm central/right paramedian disc protrusion. Facets are unremarkable. Since canal measures 11 mm with no mass effect on the conus or cauda equina. Neural foramina are patent. L1-L2. Intervertebral disc height and signal are maintained. Posterior elements are normal. There is no stenosis. L2-L3. Intervertebral disc height and signal are maintained. Posterior elements are normal. There is no stenosis. L3-L4. The disc is dehydrated with small diffuse bulge and superimposed 3 mm central protrusion with 3 mm superior extrusion migrating in the central zone. There is bilateral facet hypertrophy. Central canal measures 7 mm without mass effect on the cauda equina. Lateral recesses are mildly narrowed without mass effect on the descending L4 nerve roots. There is [id number]-cy-[id number] narrowing of the neural foramina without mass effect on the L3 nerve roots. L4-L5. Disc height is maintained. There is diffuse disc bulge with central annular fissuring. There is bilateral facet hypertrophy with ligamentous redundancy. Central canal measures 10 mm. Lateral recesses are narrowed bilaterally with disc and facets crowding both descending L5 nerve roots. There is moderate narrowing of the left neural foramen. L5-S1. Chronic narrowing of the disc space with partial ankylosis, stable from 03/04/2012. There is a circumferential disc osteophyte complex. Facets are unremarkable. Central canal measures 10 mm lateral recesses are patent. Neural foramina are patent. IMPRESSION: 1. 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 2. Yzmq-fb-nfiegwdu L3-L4 central canal stenosis without substantial mass effect on the cauda equina. There is a central zone superior extrusion present. 3. Please see additional comments above. 08/02/2017 - - Read by: Renny Dow MD Dictated Date/time: 08/03/17 07:50 Electronically Signed by: Renny Dow MD 08/03/17 07:59 FINAL REPORT [facility] Spine lumbar 2 or 3 views DX Spine lumbar 2 or 3 views DX Clinical history: Radiculopathy, lumbosacral region. Sex: Female. : 1935 Technique: 2 views of the lumbar spine. Findings: Moderate anterior wedge compression fracture at T12. The anterior vertebral body height is 80% loss. There is 2-3 mm of posterior superior retropulsion. There is a mild local tenderness. Anterior osteophyte or calcification noted. The lumbosacral segment is transitional with rudimentary disc. There is generalized spondylosis. Impression: 1. T12 compression fracture. Degenerative disc disease. 11/26/2016 - - Read by: Valentin Reilly MD Dictated Date/time: 11/26/16 14:53 Electronically Signed by: Valentin Reilly MD 11/26/16 14:55 FINAL REPORT [facility] Thyroid US Thyroid US THYROID ULTRASOUND CLINICAL INDICATION: Thyroid cancer COMPARISON: None TECHNIQUE: Grayscale sonographic and limited Doppler images of the thyroid were performed and submitted for interpretation. FINDINGS: Status post thyroidectomy. Multiple lymph nodes are visualized in the left neck. The largest measures 1.4 cm with mild cortical thickness measuring 3 mm. IMPRESSION: Slightly suspicious appearing left neck lymph nodes. Recommend correlation with thyroglobulin levels and FNA if clinically indicated. 04/10/2015 - - Read by: Mainor Friedman MD Dictated Date/time: 04/10/15 11:57 Electronically Signed by: Mainor Friedman MD 04/10/15 12:03 FINAL REPORT [facility] CHEM PANEL BUN 12 mg/dL 7 - 22 10/30/2014 [facility] CHEM PANEL Glucose Lvl 86 mg/dL 70 - 99 10/30/2014 4Interpretive Data: Adult reference range values reflect the clinical guidelines of the [place] [employer]. [facility] CHEM PANEL CO2 30 meq/L 24 - 32 10/30/2014 [facility] CHEM PANEL AGAP 13.6 meq/L 10.0 - 20.0 10/30/2014 [facility] CHEM PANEL Sodium Lvl 136 meq/L 135 - 145 10/30/2014 [facility] CHEM PANEL Potassium Lvl 4.6 meq/L 3.5 - 5.1 10/30/2014 [facility] CHEM PANEL Chloride Lvl 97 meq/L 95 - 109 10/30/2014 [facility] CHEM PANEL eGFR 86 mL/min/1.73m2 10/30/2014 1Result Comment: The eGFR is calculated using [...] from the National Kidney Disease Education Program (NKDEP) which additionally recommends that when the eGFR is used in patients with extremes of body mass index for purposes of drug dosing, the eGFR should be multiplied by the estimated BMI. [facility] CHEM PANEL Creatinine Lvl 0.6 mg/dL 0.5 - 1.4 10/30/2014 [facility] CHEM PANEL Calcium Lvl 8.9 mg/dL 8.5 - 10.5 10/30/2014 [facility] CHEM PANEL Magnesium Lvl 2.0 mg/dL 1.8 - 2.4 10/29/2014 [facility] ELECTROLYTES AGAP 11.2 meq/L 10.0 - 20.0 10/29/2014 [facility] ELECTROLYTES CO2 28 meq/L 24 - 32 10/29/2014 [facility] ELECTROLYTES Calcium Lvl 8.0 mg/dL 8.5 - 10.5 10/29/2014 [facility] ELECTROLYTES eGFR 92 mL/min/1.73m2 10/29/2014 2Result Comment: The eGFR is calculated using [...] from the National Kidney Disease Education Program (NKDEP) which additionally recommends that when the eGFR is used in patients with extremes of body mass index for purposes of drug dosing, the eGFR should be multiplied by the estimated BMI. [facility] ELECTROLYTES Glucose Lvl 110 mg/dL 70 - 99 10/29/2014 5Interpretive Data: Adult reference range values reflect the clinical guidelines of the [place] [employer]. [facility] ELECTROLYTES Creatinine Lvl 0.5 mg/dL 0.5 - 1.4 10/29/2014 [facility] ELECTROLYTES Potassium Lvl 4.2 meq/L 3.5 - 5.1 10/29/2014 [facility] ELECTROLYTES Chloride Lvl 96 meq/L 95 - 109 10/29/2014 [facility] ELECTROLYTES Sodium Lvl 131 meq/L 135 - 145 10/29/2014 [facility] ELECTROLYTES BUN 9 mg/dL 7 - 22 10/29/2014 [facility] HEMATOLOGY Hct 38.0 % 36.0 - 48.0 10/29/2014 [facility] HEMATOLOGY Hgb 13.3 g/dL 12.0 - 16.0 10/29/2014 [facility] HEMATOLOGY MCHC 34.9 g/dL 32.0 - 36.0 10/29/2014 [facility] HEMATOLOGY MCH 32.3 pg 27.0 - 31.0 10/29/2014 [facility] HEMATOLOGY Platelet 191 K/CMM 133 - 450 10/29/2014 [facility] HEMATOLOGY RDW 14.1 % 11.5 - 14.5 10/29/2014 [facility] HEMATOLOGY MCV 92.6 fL 80.0 - 98.0 10/29/2014 [facility] HEMATOLOGY MPV 7.0 fL 7.4 - 10.4 10/29/2014 [facility] HEMATOLOGY WBC 4.6 K/CMM 3.7 - 10.4 10/29/2014 [facility] HEMATOLOGY RBC 4.10 M/CMM 4.20 - 5.40 10/29/2014 [facility] CHEM PANEL Calcium Lvl 7.8 mg/dL 8.5 - 10.5 10/29/2014 [facility] CHEM PANEL Sodium Lvl 131 meq/L 135 - 145 10/29/2014 [facility] CHEM PANEL Chloride Lvl 98 meq/L 95 - 109 10/29/2014 [facility] CHEM PANEL Potassium Lvl 4.0 meq/L 3.5 - 5.1 10/29/2014 [facility] CHEM PANEL Creatinine Lvl 0.8 mg/dL 0.5 - 1.4 10/29/2014 [facility] CHEM PANEL Glucose Lvl 165 mg/dL 70 - 99 10/29/2014 6Interpretive Data: Adult reference range values reflect the clinical guidelines of the [place] [employer]. [facility] CHEM PANEL eGFR 70 mL/min/1.73m2 10/29/2014 3Result Comment: The eGFR is calculated using [...] from the National Kidney Disease Education Program (NKDEP) which additionally recommends that when the eGFR is used in patients with extremes of body mass index for purposes of drug dosing, the eGFR should be multiplied by the estimated BMI. [facility] CHEM PANEL BUN 10 mg/dL 7 - 22 10/29/2014 [facility] CHEM PANEL AGAP 13.0 meq/L 10.0 - 20.0 10/29/2014 [facility] CHEM PANEL CO2 24 meq/L 24 - 32 10/29/2014 [facility] CHEM PANEL Magnesium Lvl 2.1 mg/dL 1.8 - 2.4 10/28/2014 [facility] URINE CHEM U Osmolality 359 mOsm/kg 300 - 800 10/27/2014 [facility] URINE CHEM U Potassium 25.7 meq/L 10/27/2014 12Interpretive Data: No established reference ranges. [facility] URINE CHEM U Creatinine 50.2 mg/dL 10/27/2014 8Interpretive Data: No established reference ranges. [facility] URINE CHEM U Sodium 32 meq/L 10/27/2014 10Interpretive Data: No established reference ranges. [facility] THYROID PANEL T4 Free 1.47 ng/dL 0.76 - 1.46 10/27/2014 [facility] CHEM PANEL Magnesium Lvl 2.0 mg/dL 1.8 - 2.4 10/27/2014 [facility] HEMATOLOGY MCV 94.7 fL 80.0 - 98.0 10/27/2014 [facility] HEMATOLOGY MCH 31.5 pg 27.0 - 31.0 10/27/2014 [facility] HEMATOLOGY Hct 36.7 % 36.0 - 48.0 10/27/2014 [facility] HEMATOLOGY Hgb 12.2 g/dL 12.0 - 16.0 10/27/2014 [facility] HEMATOLOGY RBC 3.88 M/CMM 4.20 - 5.40 10/27/2014 [facility] HEMATOLOGY WBC 6.6 K/CMM 3.7 - 10.4 10/27/2014 [facility] HEMATOLOGY Platelet 170 K/CMM 133 - 450 10/27/2014 [facility] HEMATOLOGY MCHC 33.2 g/dL 32.0 - 36.0 10/27/2014 [facility] HEMATOLOGY RDW 13.7 % 11.5 - 14.5 10/27/2014 [facility] HEMATOLOGY MPV 7.5 fL 7.4 - 10.4 10/27/2014 [facility] CHEM PANEL Osmolality 249 mOsm/kg 280 - 300 10/27/2014 [facility] CHEM PANEL Uric Acid 1.9 mg/dL 2.5 - 7.0 10/27/2014 [facility] THYROID PANEL TSH 0.021 uIU/mL 0.360 - 3.740 10/27/2014 [facility] HEMATOLOGY Platelet 167 K/CMM 133 - 450 10/26/2014 [facility] CARDIAC ENZYMES CK MB Index 0.9 0.0 - 2.5 10/26/2014 [facility] CARDIAC ENZYMES Troponin-I 0.02 ng/mL 0.00 - 0.40 10/26/2014 [facility] CARDIAC ENZYMES BNP 61 pg/mL <=100 pg/mL 10/26/2014 7Interpretive Data: Elevated results are in line with increasing severity of congestive heart failure. Minor elevations between 100 and 300 may be seen with Myocardial Ischemia, Sodium retaining drugs, and compensated/treated heart failure. [facility] CARDIAC ENZYMES Total CK 996 unit/L 12 - 191 10/26/2014 [facility] CARDIAC ENZYMES CK MB 9.0 ng/mL 0.5 - 3.6 10/26/2014 [facility] CHEM PANEL Phosphorus 2.5 mg/dL 2.5 - 4.5 10/26/2014 [facility] CHEM PANEL Alk Phos 44 unit/L 39 - 136 10/26/2014 [facility] CHEM PANEL B/C Ratio 34 6 - 25 10/26/2014 [facility] CHEM PANEL Albumin Lvl 4.0 g/dL 3.5 - 5.0 10/26/2014 [facility] CHEM PANEL AST 52 unit/L 0 - 37 10/26/2014 [facility] CHEM PANEL ALT 46 unit/L 0 - 65 10/26/2014 [facility] CHEM PANEL Globulin 2.5 g/dL 2.0 - 4.0 10/26/2014 [facility] CHEM PANEL Total Protein 6.5 g/dL 6.4 - 8.4 10/26/2014 [facility] CHEM PANEL A/G Ratio 1.6 0.7 - 1.6 10/26/2014 [facility] CHEM PANEL Bili Total 2.3 mg/dL 0.2 - 1.3 10/26/2014 [facility] HEMATOLOGY Anisocyte 1+ *ABN* (10/26/14 9:00 AM) None Seen 10/26/2014 [facility] HEMATOLOGY Basophils # 0.0 K/CMM 0.0 - 0.2 10/26/2014 [facility] HEMATOLOGY Eosinophils # 0.0 K/CMM 0.0 - 0.5 10/26/2014 [facility] HEMATOLOGY Macrocyte 1+ *ABN* (10/26/14 9:00 AM) None Seen 10/26/2014 [facility] HEMATOLOGY Basophils 0.2 % 0.0 - 1.0 10/26/2014 [facility] HEMATOLOGY Segs-Bands # 11.3 K/CMM 1.5 - 8.1 10/26/2014 [facility] HEMATOLOGY Monocytes # 0.5 K/CMM 0.0 - 0.8 10/26/2014 [facility] HEMATOLOGY Lymphocytes # 1.0 K/CMM 1.0 - 5.5 10/26/2014 [facility] HEMATOLOGY Eosinophils 0.0 % 0.0 - 4.0 10/26/2014 [facility] HEMATOLOGY Lymphocytes 7.7 % 20.0 - 40.0 10/26/2014 [facility] HEMATOLOGY Monocytes 4.2 % 2.0 - 12.0 10/26/2014 [facility] HEMATOLOGY Plt Morph Normal (10/26/14 9:00 AM) 10/26/2014 [facility] Segs 87.9 % 45.0 - 75.0 10/26/2014 [facility] PTT 28.0 s 22.9 - 35.8 10/26/2014 15Interpretive Data: Heparin Therapeutic Range: 57 - 92 Seconds [facility] HEMATOLOGY PT 14.7 s 12.0 - 14.7 10/26/2014 [facility] INR 1.14 0.85 - 1.17 10/26/2014 14Interpretive Data: RECOMMENDED RANGES FOR PROTIME INR: 2.0-3.0 for most medical and surgical thromboembolic states. 2.5-3.5 for artificial heart valves and recurrent embolism. INR SHOULD BE USED ONLY FOR PATIENTS ON STABLE ANTICOAGULANT THERAPY. [facility] HEMATOLOGY MCV 96.0 fL 80.0 - 98.0 10/26/2014 [facility] HEMATOLOGY Hct 40.0 % 36.0 - 48.0 10/26/2014 [facility] Hgb 13.4 g/dL 12.0 - 16.0 10/26/2014 [facility] RBC 4.17 M/CMM 4.20 - 5.40 10/26/2014 [facility] MPV 7.3 fL 7.4 - 10.4 10/26/2014 [facility] RDW 13.6 % 11.5 - 14.5 10/26/2014 [facility] MCHC 33.5 g/dL 32.0 - 36.0 10/26/2014 [facility] MCH 32.2 pg 27.0 - 31.0 10/26/2014 [facility] HEMATOLOGY WBC 12.9 K/CMM 3.7 - 10.4 10/26/2014 [facility] URINE AND STOOL UA Sq Epi None Seen 10/26/2014 [facility] URINE AND STOOL UA Urobilinogen <=1.0 mg/dL 0.1 - 1.0 10/26/2014 [facility] URINE AND STOOL UA RBC 42 /HPF 0 - 2 10/26/2014 [facility] URINE AND STOOL UA Mucus Few /LPF None Seen /LPF 10/26/2014 [facility] URINE AND STOOL UA Ketones 20 mg/dL Negative mg/dL 10/26/2014 [facility] URINE AND STOOL UA Protein 50 mg/dL Negative mg/dL 10/26/2014 [facility] URINE AND STOOL UA pH 6.5 5.0 - 8.0 10/26/2014 [facility] URINE AND STOOL UA Bili Negative *NA* (10/26/14 9:00 AM) Negative 10/26/2014 [facility] URINE AND STOOL UA Glucose 70 mg/dL Negative mg/dL 10/26/2014 [facility] URINE AND STOOL UA Leuk Est Negative (10/26/14 9:00 AM) Negative 10/26/2014 [facility] URINE AND STOOL UA Nitrite Negative (10/26/14 9:00 AM) Negative 10/26/2014 [facility] URINE AND STOOL UA Blood Moderate *ABN* (10/26/14 9:00 AM) Negative 10/26/2014 [facility] URINE AND STOOL UA WBC 2 /HPF 0 - 5 10/26/2014 [facility] URINE AND STOOL UA Spec Grav 1.016 <=1.030 10/26/2014 [facility] URINE AND STOOL UA Turbidity Clear (10/26/14 9:00 AM) Clear 10/26/2014 [facility] URINE AND STOOL UA Color Yellow *NA* (10/26/14 9:00 AM) Yellow 10/26/2014 [facility] URINE CHEM U Creatinine 110.5 mg/dL 10/26/2014 9Interpretive Data: No established reference ranges. [facility] URINE CHEM U Potassium 51.5 meq/L 10/26/2014 13Interpretive Data: No established reference ranges. [facility] URINE CHEM U Sodium 36 meq/L 10/26/2014 11Interpretive Data: No established reference ranges. [facility] URINE CHEM U Osmolality 617 mOsm/kg 300 - 800 10/26/2014 [facility] Vital Signs Vital Sign Value Date Comments Source Diastolic (mm Hg) 67 10/30/2014 [facility] Systolic (mm Hg) 143 10/30/2014 [facility] Heart Rate 64 10/30/2014 [facility] Respitory Rate 16 10/30/2014 [facility] Temperature Oral (F) 97.4 F 10/30/2014 [facility] Systolic (mm Hg) 152 10/30/2014 [facility] Diastolic (mm Hg) 74 10/30/2014 [facility] Respitory Rate 16 10/30/2014 [facility] Temperature Oral (F) 98.2 F 10/30/2014 [facility] Heart Rate 66 10/30/2014 [facility] Temperature Oral (F) 98.5 F 10/30/2014 [facility] Heart Rate 65 10/30/2014 [facility] Respitory Rate 16 10/30/2014 [facility] Diastolic (mm Hg) 79 10/30/2014 [facility] Systolic (mm Hg) 160 10/30/2014 [facility] Weight 52 10/26/2014 [facility] Height 172.72 cm 10/26/2014 [facility] Encounters Location Location Details Encounter Type Encounter Number Reason For Visit Attending Provider ADM Date DC Date Status Source [facility] Inpatient [id number] Hubercar Jacomei 10/26/2014 10/30/2014 [facility] [id number] Jalil Roy 04/10/2015 04/11/2015 [facility] [id number] Woon Sim 11/26/2016 11/27/2016 [facility] Outpatient [facility] Out[facility] Di[facility] Services [id number] Woon Sim 08/02/2017 08/03/2017 [facility] Outpt Diag Services [id number] Woon Sim 09/06/2017 09/07/2017 [facility] Procedures Procedure Code Date Perfomer Comments Source Total thyroidectomy [id number] [facility] Total thyroidectomy [id number] [facility] Total thyroidectomy [id number] [facility]
[2018-08-19] MEDS ORDERED: SODIUM CHLORIDE 0.9% 1000ML 1,000 ML IV STA (16:33)
[2018-08-19] MEDS ORDERED: ACETAMINOPHEN 325 MG TAB PO ONE (17:00)
[2018-08-19] MEDS ORDERED: ALENDRONATE SOD70 MG PO (17:33)
[2018-08-19] MEDS ORDERED: RANITIDINE HCL150 MG PO (17:33)
[2018-08-19] MEDS ORDERED: MAGNESIUM OXID400 MG PO (17:33)
[2018-08-19] MEDS ORDERED: CENTRUM SILVER1 EAC3 PO (17:33)
[2018-08-19] MEDS ORDERED: LOSARTAN POTAS100 MG PO (17:33)
[2018-08-19] MEDS ORDERED: ASPIR 8181 MG PO (17:33)
[2018-08-19] MEDS ORDERED: TURMERIC1 GM PO (17:33)
[2018-08-19] MEDS ORDERED: LEVOTHYROXINE88 MCG PO (17:33)
--- NOTE | 2018-08-19 19:32 | Diagnostic Imaging Report ---
EXAM: CT Abdomen and Pelvis WITHOUT contrast INDICATION: Hematuria. Kidney stone. COMPARISON: None. TECHNIQUE: Abdomen and pelvis were scanned utilizing a multidetector helical scanner from the lung base to the pubic symphysis without administration of IV contrast. Absence of intravenous contrast decreases sensitivity for detection of focal lesions and vascular pathology. Coronal and sagittal reformations were obtained. Routine protocol was performed. IV CONTRAST: None. ORAL CONTRAST: Water RADIATION DOSE: Total DLP: 385.64 mGy*cm Estimated effective dose: (DLP x 0.015 x size factor) mSv COMPLICATIONS: None FINDINGS: LINES and TUBES: None. LOWER THORAX: Bibasilar patchy groundglass densities. 5 mm subpleural nodule in the right lung base posteriorly. Partially visualized nodular density with central cavitation in the right lung base posteriorly measures 1.7 cm on image 7 series 2. 2.3 cm nodule in the posterior left lung base on image 18. Bilateral small diaphragmatic hernias, left larger than right. HEPATOBILIARY: 2.3 cm cyst in the segment 4 of the liver. 0.8 cm cyst in segment 5.. No biliary ductal dilation. GALLBLADDER: No radio-opaque stones or sludge. No wall thickening. SPLEEN: No splenomegaly. PANCREAS: No focal masses or ductal dilatation. ADRENALS: No adrenal nodules KIDNEYS/URETERS: No hydronephrosis. 1.3 cm cyst in the posterior interpolar region of the left kidney on image 60. No stones. GI TRACT: No abnormal distention, wall thickening, or evidence of bowel obstruction. Appendicoliths. No appendicitis. Diverticulosis predominantly involving the sigmoid colon without evidence of acute diverticulitis. PELVIC ORGANS/BLADDER: Unremarkable. LYMPH NODES: No lymphadenopathy. VESSELS: There is moderate to severe atherosclerotic disease in the aorta and major arterial branches. PERITONEUM / RETROPERITONEUM: No free air or fluid. BONES: Severe compression fracture deformity of T12 with mild retropulsion and narrowing of the spinal canal. Multilevel degenerative changes of the imaged thoracal lumbar spine. SOFT TISSUES: Unremarkable. IMPRESSION: 1. No urolithiasis. No obstructive uropathy. If clinical concern remains, consider further evaluation with CT abdomen and pelvis hematuria protocol on a nonemergent basis. 2. Bibasilar pulmonary nodules. Recommend dedicated CT chest nodule protocol. 3. Colonic diverticulosis without acute diverticulitis. 4. Severe compression fracture deformity of T12 with mild retropulsion and narrowing of the spinal canal. It is of uncertain age, possibly chronic smoker correlate for upper lumbar/ lower thoracic pain. Signed by: Dr. Adrián Jackson M.D. on 08/19/2018 7:29 PM
[2018-08-19] MEDS ORDERED: SODIUM CHLORIDE 0.9% 1000ML 1,000 ML IV SCH (20:22)
[2018-08-19] MEDS ORDERED: ACETAMINOPHEN 325 MG TAB PO PRN (20:30)
[2018-08-19] MEDS ORDERED: ONDANSETRON HCL INJ 2 MG/ML VIAL IV PRN (20:30)
--- OUTSIDE RECORDS SUMMARY | 2018-08-19 20:47 | XMS REPORT ---
Author Author [facility] Address Unknown Phone Unavailable Care Team Providers [employer] Professor Name Role Phone Andre NUÑEZ Unavailable Unavailable Problems This patient has no known problems. Allergies, Adverse Reactions, Alerts This patient has no known allergies or adverse reactions. Medications This patient has no known medications. Results Test Description Test Time Test Comments Text Results Atomic Results Result Comments CT ABD/PEL WO CONTRAST-HOPD 2018-08-19 19:18:00 [place] [address] Patient Name: VARUN CAGE MR #: [id number] : 1935 Age/Sex: 83/F Req #: [id number] Adm Physician: Ordered by: JAUN NUÑEZ MD Report #: [id number] Location: [facility] Room/Bed: Procedure: [id number] HOPD/CT ABD/PEL WO CONTRAST-HOPD Exam Date: 08/19/18 Exam Time: 1858 REPORT STATUS: Signed EXAM: CT Abdomen and Pelvis WITHOUT contrast INDICATION: Hematuria. Kidney stone. COMPARISON: None. TECHNIQUE: Abdomen and pelvis were scanned utilizing a multidetector helical scanner from the lung base to the pubic symphysis without administration of IV contrast. Absence of intravenous contrast decreases sensitivity for detection of focal lesions and vascular pathology. Coronal and sagittal reformations were obtained. Routine protocol was performed. IV CONTRAST: None. ORAL CONTRAST: Water RADIATION DOSE: Total DLP: 385.64 mGy*cm Estimated effective dose: (DLP x 0.015 x size factor) mSv COMPLICATIONS: None FINDINGS: LINES and TUBES: None. LOWER THORAX: Bibasilar patchy groundglass densities. 5 mm subpleural nodule in the right lung base posteriorly. Partially visualized nodular density with central cavitation in the right lung base posteriorly measures 1.7 cm on image 7 series 2. 2.3 cm nodule in the posterior left lung base on image 18. Bilateral small diaphragmatic hernias, left larger than right. HEPATOBILIARY: 2.3 cm cyst in the segment 4 of the liver. 0.8 cm cyst in segment 5.. No biliary ductal dilation. GALLBLADDER: No radio-opaque stones or sludge. No wall thickening. SPLEEN: No splenomegaly. PANCREAS: No focal masses or ductal dilatation. ADRENALS: No adrenal nodules KIDNEYS/URETERS: No hydronephrosis. 1.3 cm cyst in the posterior interpolar region of the left kidney on image 60. No stones. GI TRACT: No abnormal distention, wall thickening, or evidence of bowel o bstruction. Appendicoliths. No appendicitis. Diverticulosis predominantly involving the sigmoid colon without evidence of acute diverticulitis. PELVIC ORGANS/BLADDER: Unremarkable. LYMPH NODES: No lymphadenopathy. VESSELS: There is moderate to severe atherosclerotic disease in the aorta and major arterial branches. PERITONEUM / RETROPERITONEUM: No free air or fluid. BONES: Severe compression fracture deformity of T12 with mild retropulsion and narrowing of the spinal canal. Multilevel degenerative changes of the imaged thoracal lumbar spine. SOFT TISSUES: Unremarkable. IMPRESSION: 1. No urolithiasis. No obstructive uropathy. If clinical concern remains, consider further evaluation with CT abdomen and pelvis hematuria protocol on a nonemergent basis. 2. Bibasilar pulmonary nodules. Recommend dedicated CT chest nodule protocol. 3. Colonic diverticulosis without acute diverticulitis. 4. Severe compression fracture deformity of T12 with mild retropulsion and narrowing of the spinal canal. It is of uncertain age, possibly chronic smoker correlate for upper lumbar/ lower thoracic pain. Signed by: Dr. Adrián Thomas M.D. on 08/19/2018 7:29 PM Dictated By: ALINA THOMAS MD, MD 28 Transcribed By: STEPHANIE on 08/19/181928 COPY TO: JAUN NUÑEZ MD
--- NOTE | 2018-08-19 21:09 | Diagnostic Imaging Report ---
Exam: Head CT without contrast History: Headache, nausea, altered mental status Comparison studies: None Technique: Axial images were obtained from the skull base to the vertex. Coronal and sagittal images reconstructed from the axial data. Dose modulation, iterative reconstruction, and/or weight based adjustment of the mA/kV was utilized to reduce the radiation dose to as low as reasonably achievable. Radiation dose: Total DLP: 969 mGy*cm. Estimated effective dose: DLP x 0.015 Intravenous contrast: None Findings: Scalp: No abnormalities. Bones: No fractures, blastic or lytic lesions. Brain sulci: Mildly prominent. Ventricles: Mild compensatory dilatation. No hydrocephalus. Extra-axial spaces: No masses, no fluid collection. Parenchyma: No mass, acute hemorrhage or acute or chronic vascular insults. A few scattered and mildly confluent hypodensities in the supratentorial white matter are nonspecific but most compatible with chronic microvascular ischemic changes. Sellar/suprasellar region: No abnormalities. Craniocervical junction: Patent foramen magnum. No Chiari one malformation. Incidental findings: Bilateral intraocular lens replacements related previous cataract surgery. Atherosclerotic calcifications in the carotid siphons. IMPRESSION: No acute intracranial abnormalities. Chronic findings: 1. Mild generalized volume loss. 2. Mild microvascular scheme changes. Signed by: Dr. Mac Almazan M.D. on 08/19/2018 9:05 PM
[2018-08-19] MEDS: CEFTRIAXONE SOD 1 GM VIAL IV SCH (21:19)
[2018-08-19 22:10] VITALS: BP 143/67
[2018-08-19 23:19] VITALS: BP 143/67
[2018-08-20 01:30] VITALS: BP 133/60
[2018-08-20 04:35] VITALS: BP 134/63
[2018-08-20 05:39] LABS: BASOPHILS % 0.5 % (0.0-1.0); EOSINOPHILS # (AUTO) 0.1 (0.0-0.4); EOSINOPHILS % 2.4 % (0.0-6.0); HEMATOCRIT 35.4 % (34.2-44.1); HEMOGLOBIN 11.8 g/dL (12.0-16.0); LYMPHOCYTES # (AUTO) 1.2 (1.0-3.2); LYMPHOCYTES % 31.6 % (18.0-39.1); MEAN CORPUSCULAR HEMOGLOBIN 31.6 pg (28-32); MEAN CORPUSCULAR HGB CONC 33.3 g/dL (31-35); MEAN CORPUSCULAR VOLUME 94.7 fL (81-99); MONOCYTES # (AUTO) 0.5 (0.2-0.8); MONOCYTES % 12.2 % (4.4-11.3); PLATELET COUNT 189 x10e3/uL (140-360); RED BLOOD COUNT 3.74 x10e6/uL (3.6-5.1); RED CELL DISTRIBUTION WIDTH 12.6 % (11.7-14.4)
[2018-08-20 06:15] LABS: ALANINE AMINOTRANSFERASE 15 IU/L (0-55); ALBUMIN 3.5 g/dL (3.5-5.0); ALBUMIN/GLOBULIN RATIO 1.6 (0.8-2.0); ALKALINE PHOSPHATASE 35 IU/L (40-150); ANION GAP 11.3 mmol/L (8-16); BLOOD UREA NITROGEN 9 mg/dL (7-26); BUN/CREATININE RATIO 15 (6-25); CALCIUM 8.2 mg/dL (8.4-10.2); CARBON DIOXIDE 24 mmol/L (22-29); CHLORIDE 107 mmol/L (98-107); CREATININE, SERUM 0.62 mg/dL (0.57-1.11); EST GLOMERULAR FILTRATION RATE > 60 ML/MIN (60-); GLUCOSE 89 mg/dL (74-118); MAGNESIUM 2.3 MG/DL (1.3-2.1); PHOSPHORUS 2.7 MG/DL (2.3-4.7); POTASSIUM 3.3 mmol/L (3.5-5.1); SODIUM 139 mmol/L (136-145)
[2018-08-20 07:30] VITALS: BP 122/58
[2018-08-20] MEDS: CEFTRIAXONE SOD 1 GM VIAL IV SCH (08:52)
[2018-08-20 09:45] VITALS: BP 122/58
[2018-08-20 11:24] VITALS: BP 123/60
[2018-08-20] MEDS ORDERED: POTASSIUM CHLORIDE 20 MEQ TAB CR PO ONE (12:00)
--- NOTE | 2018-08-20 12:52 | Diagnostic Imaging Report ---
ADDENDUM #1 Addendum: CT abdomen and pelvis without contrast dated 08/19/2018 was reviewed. The 2.3 cm slightly spiculated subpleural nodular density in the posteromedial left lower lobe has increased in craniocaudal dimension when compared to CT performed 24 hours previously (1.6 cm on sagittal image 71 in the current study compared to sagittal image 1.[address] performed 08/19/2017). This nodular density is directly superior to a small fat-containing left posterior diaphragmatic hernia. Multiple small vascular branches converge on this nodular density (for example sagittal image 71-73). Given these findings and the rapid difference in size, this area likely represents atelectatic changes/round atelectasis rather than a neoplasm. Recommend follow-up low-dose nodule chest CT in 6-8 weeks to document stability or resolution. Signed by: Dr. Nixon Orellana M.D. on 08/23/2018 7:13 PM ORIGINAL REPORT EXAMINATION: CT scan of the chest without contrast. TECHNIQUE: Spiral CT images of the chest were performed from the lung apices to the level of the adrenal glands. No intravenous contrast was administered per physician's request. Coronal and sagittal reformatted images were obtained. COMPARISON: CT chest 04/27/2012, CT abdomen 08/19/2013 CLINICAL HISTORY:Delirium, UTI, follow-up abnormal CT abdomen DISCUSSION: ABSENCE OF INTRAVENOUS CONTRAST DECREASES SENSITIVITY FOR DETECTION OF FOCAL LESIONS AND VASCULAR PATHOLOGY. LINES/TUBES: None. LUNGS AND AIRWAYS: Mild biapical pleural parenchymal scarring. No significant interval change in patchy groundglass opacities, predominantly in the right lower lobe (for example series 3, image 69). Interval decrease in size in previously described nodular density in the right lower lung, which measures 1.2 cm (previously measured 1.7 cm). The previously described central cavitation is not in the current exam. Unchanged 2.3 x 1.6 x 1.6 cm slightly spiculated subpleural nodular density in the posteromedial left lower lobe (series 3, image 93). Stable 4-5 mm subpleural nodular density in the right lower lobe (series 3, image 684). Stable approximately 7 mm nodular density in the posterolateral right lower lobe (series 3, image 79). 4-5 mm nodular density in the posterior right lower lobe (series 3, image 65). 4 mm nodular density in the lateral left lower lobe (series 3, image 80). Linear opacities and atelectatic changes anterior left lower lobe secondary to cardiomegaly. Mild groundglass opacification in the dependent portion of the left upper lobe against the major fissure, likely reflecting atelectasis. No definite consolidation. Airways are clear, without trabeculations. PLEURA: No pneumothorax or pleural effusions. Stable small fat-containing left posterior diaphragmatic hernia (series 2, image 107). HEART AND MEDIASTINUM: The thyroid gland is unremarkable. Moderate cardiomegaly, with enlargement of the left atrium and left ventricle. Mild atherosclerotic calcification of the coronary arteries and moderate calcification of the thoracic aortic arch. Aneurysmal dilation of the ascending thoracic aorta, which measures 4.8 x 5.0 cm. Main pulmonary artery is enlarged, measuring 3.6 cm. No pericardial effusion. LYMPH NODES: Calcified right upper paratracheal lymph node. No mediastinal or axillary adenopathy. Difficult to assess for hilar adenopathy given the lack of intravenous contrast. ABDOMEN: Limited unenhanced views of the upper abdomen show no abnormality within the visualized spleen, or kidneys. Stable fluid density hepatic cysts. The adrenal glands are normal. BONES AND SOFT TISSUES: No aggressive lytic lesions. Age-indeterminate compression fractures of the T9 and T12 vertebral bodies with mild retropulsion and narrowing of the spinal canal. Generalized osteopenia. No lytic lesions. IMPRESSION: 1. 2.3 cm slightly spiculated subpleural nodular density in the posteromedial left lower lobe, which is worrisome for primary bronchogenic neoplasm, particularly if there is a prior history of smoking. 2. Interval decrease in size in previously described nodular density in the right lower lung. No cavitation is noted in the current exam. This may reflect an infectious etiology. No interval change in patchy groundglass opacities predominantly in the right lower lobe, which may also reflect infection/pneumonia. Recommend follow-up chest CT in 2 months after appropriate treatment to document stability or resolution. 3. Stable nodular densities in the lower lobes bilaterally, which are indeterminate. These can also be followed with above-mentioned CT. 4. Moderate cardiomegaly. Aneurysmal dilation of the ascending thoracic aorta. Enlarged main pulmonary artery consistent with pulmonary hypertension. Signed by: Dr. Nixon Orellana M.D. on 08/20/2018 12:49 PM
--- NOTE | 2018-08-20 13:01 | History and Physical ---
CHIEF COMPLAINT: Altered mental status. HPI: Ms. Jules is a Armenian-speaking lady. She is mother of Dr. Bridger Jules who is an ENT physician here. Patient was brought in by the son because of altered mental status. She was seen in the freestanding emergency room. The other complaints are that she had decreased appetite, abdominal discomfort going on for last 8 to 10 days with some nausea, so they were concerned, so she was brought into the emergency room. She currently denies any chest pain, shortness of breath, nausea, vomiting. She is having abdominal discomfort. In the emergency room, patient underwent a urinalysis which showed trace leukocyte esterase, ketones. She underwent CBC which showed white count of 4.9, hemoglobin of 12.4, and platelets of 185. She underwent a chemistry which showed sodium of 131. The rest of the chemistry was within normal limits. CT head did not show any acute infarct. She is awake and alert and oriented now. REVIEW OF SYSTEMS GENERAL: Denies any fevers or chills. HEAD: Denies any head trauma. ENT: Denies any earache. CVS: Denies any chest pain. RESPIRATORY: Denies any shortness of breath. GI: Mild abdominal discomfort, but no nausea and vomiting. MUSCULOSKELETAL: Denies any arthralgias or myalgias. Rest of the review of systems are negative except as in HPI. PAST MEDICAL HISTORY 1. Hypertension; history of papillary thyroid cancer, status post thyroidectomy in 2012. 2. GERD. 3. Hypothyroidism. 4. History of aortic aneurysm which is followed by bean ro[facility]. 5. History of mitral regurgitation. PAST SURGICAL HISTORY: As above. FAMILY AND SOCIAL HISTORY: She does not smoke, does not drink. PHYSICAL EXAM VITAL SIGNS: Temperature 98.3, pulse of 50, blood pressure 122/58. HEENT: Head atraumatic, normocephalic. NECK: Supple. CHEST: Clear to auscultation bilaterally. No wheezing. No crackles. HEART: S1, S2 audible. No murmurs, gallops, or rub. ABDOMEN: Soft, nontender, nondistended. Bowel sounds audible. No hepatosplenomegaly. EXTREMITIES: No clubbing, cyanosis, or edema. NEUROLOGICAL: She is awake, alert, and oriented. No focal neurologic deficit. LABORATORY STUDIES: Sodium of 139, potassium 3.3. Sodium was 131 yesterday in the emergency room. BUN 9, creatinine 0.6, white count of 3.7, hemoglobin 11.8, INR is 1.08. CT of the abdomen and pelvis was done in the emergency room which showed no obstructive uropathy, showing normal CT abdomen. Some diverticulosis but no diverticulitis. I have reviewed the CT of the abdomen, lower cuts, which are showing lower cuts of chest. They are showing some pulmonary nodule and mosaicism. ASSESSMENT/PLAN: Ms. Jules is an 83-year-old female. She presented to the emergency room with abdominal pain, inability to eat, and altered level of consciousness. Currently seems to be stable. Current problems 1. Encephalopathy that has resolved. Urology has evaluated the patient. Recommended no further intervention. 2. Possible urinary tract infection. Patient's UA was positive. We will repeat UA with micro and continue the patient on Rocephin. 3. Abdominal discomfort, normal CT abdomen. History of colonic diverticulosis. We will consult GI for further recommendations. 4. Fatigue. Heart rate is on the lower side. We will consider consulting cardiology. 5. Abnormal CT of the abdomen showing lower cuts of chest with nodules. We will order dedicated CT chest without contrast. 6. History of thyroid cancer in the remote past, thyroidectomy. Since main complaint is fatigue, I will check TSH and free T4. Job#: [id number] AMILCAR SAEED
--- NOTE | 2018-08-20 14:00 | Consultation ---
DATE OF CONSULTATION: August 20, 2018 NEUROLOGY CONSULT NOTE HISTORY OF PRESENT ILLNESS: Ms. Jules is an 83-year-old right hand dominant woman with past medical history significant for hypertension, hypertriglyceridemia, and thyroid disease, admitted to [facility] on August 19, 2018 with confusion. For approximately 10 days prior to admission, the patient has experienced drowsiness, mild diffuse headache, dizziness, and an overall sense of "not feeling well." Ms. Jules does not report a productive cough or shortness of breath. She does report abdominal pain with nausea, but without vomiting. Patient's son reports decreased frequency of bowel movements over the past 10 days. Furthermore, he endorses decreased urine output over the past 10 days. Ms. Jules does not report burning with urination or urinary urgency. Ms. Jules's son attributes the patient's decreased urinary output and decreased number of bowel movements to poor oral intake which has been present for months, but has significantly worsened over the past 10 days. Concern regarding the patient's symptoms, Ms. Jules was taken to a [facility] for further evaluation. Laboratory data performed at this emergency center revealed mild hyponatremia with a sodium of 131. Otherwise, a comprehensive metabolic panel was unremarkable. A CBC with differential and platelets revealed a white blood cell count of 4.9 with a normal differential. The hemoglobin and hematocrit were 12.4 and 36.0, respectively. The platelet count and was 185. A urine drug screen was negative. Laboratory evaluation for Strep A, mononucleosis, respiratory syncytial virus, influenza A and B, etc. were negative. The only significant finding in the patient's laboratory data was urinalysis which revealed dark yellow urine with 15 ketones, moderate blood, and trace leukocyte esterase. While at the [facility], a CT of the brain without contrast was performed. Per report, this study showed diffuse cerebral atrophy, appropriate for age, and findings compatible with mild chronic small vessel ischemic disease. Once the results described above were available for review, she was admitted to [facility] under observation status for treatment of a probable urinary tract infections and delirium. While in the hospital, the patient has received intravenous fluids as well as intravenous antibiotics (Rocephin). Both patient and her son report her symptoms have improved while she has been in the hospital. REVIEW OF SYSTEMS: Abdominal pain, nausea, decreased oral intake, confusion, headache, dizziness. Otherwise, a 12 point review of systems is negative. 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 PAST SURGICAL HISTORY: Total thyroidectomy, bilateral cataract removal. PAST HOSPITALIZATIONS: Surgeries/procedures as listed, C. difficile infection, hyponatremia. FAMILY MEDICAL HISTORY: Significant family medical history is for multiple types of cancer. Ms. Jules has 2 sons, both of whom are alive and healthy. SOCIAL HISTORY: The patient is . She is retired. Ms. Jules does not report current or prior tobacco, alcohol, or recreational drug use. HOME MEDICATIONS: Alendronate 70 mg, amlodipine 5 mg by mouth daily, aspirin 81 mg by mouth daily, gemfibrozil 600 mg by mouth daily, levothyroxine 88 mcg by mouth daily, losartan 100 mg by mouth daily, magnesium 400 mg by mouth daily, centrum silver 1 tablet by mouth daily, ranitidine 150 mg by mouth daily, turmeric 500 mg by mouth daily. ALLERGIES: NO KNOWN DRUG ALLERGIES. NO KNOWN FOOD ALLERGIES. NO KNOWN ALLERGIES TO LATEX. NO KNOWN ALLERGIES TO IODINE OR OTHER CONTRAST MATERIALS. PHYSICAL EXAMINATION VITAL SIGNS: Height 63 inches, weight 118 pounds, BMI 20.9 kg per meter squared. Blood pressure 122/58 mmHg, pulse 48 beats per minute, respiratory rate 21 breaths per minute, oxygen saturation 98% on room air. GENERAL: The patient is awake and alert, does not appear distressed. HEENT: Normocephalic, atraumatic. Pupils are surgical. Moist mucous membranes. NECK: Supple. No appreciable thyromegaly. No appreciable carotid bruits. CARDIOVASCULAR: S1 and S2, regular rate and rhythm. No murmurs, rubs, or gallops. RESPIRATORY: Clear to auscultation bilaterally. No wheezes, rhonchi, or rales. EXTREMITIES: Skin is warm and dry. No clubbing, cyanosis, or edema. The posterior tibial and dorsalis pedis pulses are 2+ and symmetric. SKIN: No rashes or lesions. NEUROLOGIC MEMORY/ATTENTION: The patient is awake and alert, oriented to person, place, time, and situation. CRANIAL NERVES: Cranial nerve 1 - not tested. Cranial nerve II, III, IV, and - pupils are surgical. Extraocular movements intact. No nystagmus. Cranial nerve V - sensation to light touch is intact in the bilateral V1 through V3 distributions. Strength of the temporalis and masseter muscles is within normal limit. Cranial nerve VII - the face is symmetric as are all facial movements. Strength is within normal limits. Cranial nerve VIII - hearing is intact to finger rub bilaterally. Cranial nerve 9, 10 - the soft palate elevates equally and symmetrically. Cranial nerve 11 - normal strength of the bilateral sternocleidomastoid and trapezius muscles. Cranial nerve 12 - the tongue protrudes in midline and moves symmetrically from side to side. STRENGTH: Bulk is normal. Strength is 5/5 in the bilateral deltoids, biceps, triceps, wrist flexors and extensors, finger flexors and extensors, intrinsic hand muscles, hip flexors, knee flexors and extensors, ankle dorsiflexion and plantar flexion, and intrinsic foot muscles. Tone is normal. DTRs: Deep tendon reflexes are 2+ and symmetric at the triceps, biceps, brachioradialis, and patellas. Deep tendon reflexes are absent and symmetric at the Achilles. Plantar responses are flexor bilaterally. SENSATION: Sensation is intact to light touch in both arms and both legs. CEREBELLAR: Eadfok-azxs-hfizsf and heel-hernández movements are intact without dysmetria or other impairment. GAIT: Deferred. SPEECH: Spontaneous speech is normal without appreciable dysarthria or aphasia. Repetition is intact. INVOLUNTARY MOVEMENTS: None. PRONATOR DRIFT: None. LABORATORY DATA: A comprehensive metabolic panel is significant for potassium of 3.3, calcium of 8.2, magnesium of 2.3, alkaline phosphatase of 35, total protein of 5.7, and globulin of 2.2. TSH and free T4 are pending. CBC with differential and platelets reveals a white blood cell count of 3.77 with 53.0% neutrophils, 31.6% lymphocytes, 12.2% monocytes, 2.4% eosinophils, and 0.5% basophils. The hemoglobin and hematocrit are 11.1 and 35.4, respectively. The platelet count is 189. DIAGNOSTIC STUDIES 1. Electrocardiogram, August 19, 2018: Normal sinus rhythm at 65 beats per minute. 2. CT of the brain without contrast, August 19, 2018: On my review, there is no evidence of recent large territorial ischemia, hemorrhage, mass, or mass effect. Cerebral volumes are appropriate for age. There is mild compensatory dilatation of the ventricles. There are findings suggestive of aeat-uf-[id number] chronic small vessel ischemic disease. 3. CT of the abdomen pelvis, August 19, 2018: A. No urolithiasis. No obstructive uropathy. If clinical concern remains, consider further evaluation with CT abdomen and pelvis hematuria protocol on nonemergent basis. B. Bibasilar pulmonary nodules. Recommend dedicated CT chest nodule protocol. C. Colonic diverticulosis without acute diverticulitis. D. Severe compression fracture deformity at T12 with mild retropulsion and narrowing of spinal canal. It is of uncertain age, possibly chronic. Recommend correlation for upper lumbar/lower thoracic pain. ASSESSMENT AND PLAN: Ms. Jules is an 83-year-old right hand dominant woman with past medical history as detailed, admitted to [facility] on August 19, 2018, with confusion in the setting of probable urinary tract infection and dehydration. At present, the patient's encephalopathy has significantly improved/resolved. Her neurological examination is nonfocal. The patient's laboratory data and other diagnostic studies have been reviewed and are documented above. RECOMMENDATIONS: As follows: 1. Continue treatment with intravenous antibiotics for probable urinary tract infection. Follow up the results of the urine culture. 2. Continue intravenous fluids for rehydration. 3. Limit the use of sedative/hypnotic and pain medications as these will alter the patient's sensorium. 4. Utilize environmental cues to combat delirium. 5. Defer treatment of the remaining medical comorbidities to the primary and other services following the patient. Thank for this consultation. There are no other recommendations from the neurology service at this time. TIME SPENT: 70 minutes. Job#: [id number] SILVANO SAEED
[2018-08-20 15:55] VITALS: BP 133/62
[2018-08-20 19:16] LABS: FREE T4 (FREE THYROXINE) 1.2 ng/dL (0.9-1.8); THYROID STIMULATING HORMONE 0.01 uIU/mL (0.350-4.940)
--- NOTE | 2018-08-20 22:46 | Consultation ---
DATE OF CONSULTATION: August 20, 2018 CARDIOLOGY CONSULTATION REQUESTING PHYSICIAN: Dr. Rebollar. REASON FOR CONSULTATION: Bradycardia. HISTORY OF PRESENT ILLNESS: This is an 83-year-old woman with history of mitral regurgitation, hypertension, hypertriglyceridemia, hypothyroidism, and aortic aneurysm, who presented with poor p.o. intake, altered mental status and lethargy. The family indicates that she has had poor p.o. intake for approximately 10 days with altered mental status and lethargy. Patient was apparently complaining of abdominal discomfort and headache, although no chest pain, shortness of breath, edema, orthopnea, or PND could be elicited. In the ER, she was found to have abnormal UA with 15 ketones, moderate blood and trace leukocyte esterase. Labs were notable for hyponatremia with sodium of 131. Patient was subsequently admitted to [facility] for further care. During admission, the patient was noted to be bradycardic on vitals, cardiology is consulted for further evaluation. REVIEW OF SYSTEMS: As per HPI. PAST MEDICAL HISTORY 1. Hypertension. 2. Hypertriglyceridemia. 3. Mitral regurgitation. 4. Aortic aneurysm. 5. History of papillary thyroid carcinoma status post total thyroidectomy with radioactive iodine resulting hypothyroidism. 6. Osteoporosis. 7. Thoracic compression fractures. 8. GERD. PAST SURGICAL HISTORY 1. Total thyroidectomy. 2. Cataract surgery. ALLERGIES: No known drug allergies. MEDICATIONS: Please see medication list. SOCIAL HISTORY: Denies tobacco, alcohol, or illicit drugs. FAMILY HISTORY: Noncontributory. PHYSICAL EXAMINATION VITAL SIGNS: Temperature 97.5 degrees, pulse 85, respiratory rate 21, blood pressure 123/60, oxygen saturation 97% on room air. GENERAL: An elderly woman, no acute distress. Awake and alert. HEENT: Normocephalic, atraumatic. Pupils are equal. No scleral icterus. NECK: Supple. No thyromegaly or cervical lymphadenopathy. No carotid bruits. LUNGS: Clear to auscultation bilaterally. No wheezes or crackles. CARDIOVASCULAR: Normal rate, regular rhythm. No murmur. Normal S1 and S2. ABDOMEN: Soft, nontender. EXTREMITIES: No edema. NEURO: Nonfocal exam. LABS: WBC 3.77, hemoglobin 11.8, hematocrit 35.4, and platelets 189,000. Sodium 139, potassium 3.3, chloride 107, CO2 of 24, BUN 9, creatinine 0.62. IMAGING: CT chest, abdomen, and pelvis with 2.3 cm slightly speculated subpleural nodular density in the posterior medial left lower lobe, which is worsened for primary bronchogenic neoplasm particularly if there is a prior history of smoking, interval decrease in size of previously described nodular density in the right lower lung. No cavitation is noted on the current exam. This may reflect an infectious etiology. No interval changes in patchy ground glass opacities throughout in the right lower lobe. Stable nodular densities in the lower lobes bilaterally. Moderate cardiomegaly, aneurysmal dilation of the ascending thoracic aorta and large main pulmonary artery consistent with pulmonary hypertension. EKG notable for normal sinus rhythm. T-wave abnormality, consider anterolateral ischemia. IMPRESSION 1. Bradycardia. 2. Abnormal urinalysis suggestive of urinary tract infection. 3. Altered mental status, likely delirium. 4. Abdominal pain. 5. Hypertension. 6. Hypertriglyceridemia. 7. History of aortic aneurysm. 8. Mitral regurgitation. RECOMMENDATIONS: Place the patient on telemetry; hold all AV fletcher blocking agents. We will obtain an echocardiogram for further evaluation. Patient's son who is at bedside indicates patient does not wish to pursue any invasive procedures. We will monitor patient closely. Thank you for this consult. We will continue to follow. Job#: [id number] BENJIE
[2018-08-21] MEDS ORDERED: LEVOTHYROXINE SODIUM 88 MCG TAB PO SCH (06:00)
[2018-08-21] MEDS ORDERED: AMLODIPINE BESYLATE 5 MG TAB PO SCH (09:00)
[2018-08-21] MEDS ORDERED: LOSARTAN POTASSIUM 100 MG TAB PO SCH (09:00)
[2018-08-21] MEDS ORDERED: GEMFIBROZIL 600 MG TAB PO SCH (09:00)
[2018-08-21] MEDS ORDERED: ASPIRIN 81 MG CHEW TAB PO SCH (09:00)
[2018-08-21] MEDS ORDERED: MAGNESIUM OXIDE 400 MG TAB PO SCH (09:00)
--- NOTE | 2018-08-30 14:24 | Discharge Summary ---
FINAL DIAGNOSES 1. Altered mental status, which is resolved, likely due to urinary tract infection. 2. Urinary tract infection. 3. Mild hyponatremia. 4. Abnormal CT chest showing lung nodule. ADMISSION HISTORY AND HOSPITAL COURSE: Ms. Jules is an 83-year-old female. She presented to the emergency room, and she was altered. She is the mother of Dr. Bridger Jules who is an ENT physician here. The patient was worked up and found to be mildly hyponatremic, which resolved. She had a UTI for which IV antibiotics were given initially and p.o. antibiotics started. Neurology was consulted. She cleared the patient for discharge. The patient had the incidental finding of lung nodule on CT of the abdomen and pelvis, and CT chest was done which showed 2.3 cm spiculated subpleural nodular density in the posterior medial left lower lobe. The addendum on the CT showed that there was an area of atelectasis. This was discussed in detail with Dr. Jules. The patient will be discharged home to follow up with her primary care physician. JOHN HATCH MD Job#: [id number]
== END 2018-08-20 18:45 | disposition home or self-care (01) ==
LOC: FSED 15:34 → ERHOLD 20:29 → IMCU 21:54
PROVIDERS: ADMIT Internal Medicine; ATTEND Internal Medicine
DX: E86.0 Dehydration (principal); G93.40 Encephalopathy, unspecified; R10.9 Unspecified abdominal pain; K57.30 Diverticulosis of large intestine without perforation or abscess without bleeding; R53.83 Other fatigue; R93.5 Abnormal findings on diagnostic imaging of other abdominal regions, including retroperitoneum; Z85.850 Personal history of malignant neoplasm of thyroid; I34.0 Nonrheumatic mitral (valve) insufficiency; I10 Essential (primary) hypertension; E78.1 Pure hyperglyceridemia; E03.9 Hypothyroidism, unspecified; I71.4 Abdominal aortic aneurysm, without rupture; R00.1 Bradycardia, unspecified
CPT/HCPCS: 36415; 70450; 71250; 74176; 80053 ×2; 81003; 82553; 83735; 84100; 84439; 84443; 84484; 85025 ×2; 87400; 93005; 99284; G0378 ×2; J0696; J7030 ×2

== ENCOUNTER → 2018-12-03 | Outpatient (CLI) | payer MEDICARE ==
[~2018-12-03] MED LIST changes: +ALENDRONATE SOD70 MG PO; +ASPIR 8181 MG PO; +CENTRUM SILVER1 EAC3 PO; +LEVOTHYROXINE88 MCG PO; +LOSARTAN POTAS100 MG PO; +MAGNESIUM OXID400 MG PO; +RANITIDINE HCL150 MG PO; +TURMERIC1 GM PO
--- NOTE | 2018-12-05 15:14 | Diagnostic Imaging Report ---
EXAMINATION: CT scan of the chest without contrast. TECHNIQUE: Spiral CT images of the chest were performed from the lung apices to the level of the adrenal glands. No intravenous contrast was administered . Coronal and sagittal reformatted images were obtained. COMPARISON: CT chest without contrast/, CT abdomen and pelvis without contrast 08/19/2018, CT chest 04/27/2012 CLINICAL HISTORY:Follow-up lung lesions/mass DISCUSSION: ABSENCE OF INTRAVENOUS CONTRAST DECREASES SENSITIVITY FOR DETECTION OF FOCAL LESIONS AND VASCULAR PATHOLOGY. LINES/TUBES: None. LUNGS AND AIRWAYS: Right: Stable mild apical pleuroparenchymal scarring. No significant interval change in patchy groundglass opacities in the right lower lobe (for example series 3, image 72) since 2012. Stable mild subpleural reticulation in the lateral aspect of the right upper lobe (for example series 3, image 27) A patchy nodular and groundglass opacity in the lateral aspect of the right upper lobe (series 3, image 32), is more conspicuous than on prior exam. Several pulmonary nodular densities are again noted, as follows: * Stable 2-3 mm nodular density in the right upper lobe (series 3, image 24). * Interval increase in size of 6.4 mm nodular density in the posterior right lower lobe (series 3, image 62), which previously measured 4.6 mm. * Slight interval increase in size of 5 mm nodular density in the posterior right lower lobe (series 3, image 65), which previously measured 3.5 mm. * Interval increase in size of 3 mm nodular density in the posterolateral right lower lobe (series 3, image 68), which previously measured 2 mm. * Relatively stable 4-5 mm nodular density in the anterior right lower lobe against the major fissure (series 3, image 72). * Stable 2 mm nodular density in the anteromedial right middle lobe (series 3, image 87). An associated linear opacity noted on prior exam has resolved. * Relatively stable 5 mm subpleural nodular density in the posterolateral right lower lobe (series 3, image 81). * 1.6 cm diaphragmatic subpleural nodular density in the right lower lobe (series 3, image 81 and sagittal image 39), previously measured 1.2 cm on chest exam dated 08/20/[address] abdomen dated 08/19/2018. This density has surrounding groundglass opacity, without cavitation or calcification. There are adjacent impacted bronchioles. * A 1.3 cm posterior right lower lobe subpleural density (series 3, image 71 and sagittal image 37 has associated curvilinear bronchiectasis in its periphery and is more conspicuous than on prior exam, where it measured approximately 1.[address] chest 08/20/[address] abdomen dated 08/19/2018. * Interval increase in size of 1.0 cm nodular density in the posterolateral right lower lobe near the diaphragmatic pleura (series 3, image 78 and sagittal image 25), which previously measured [address] chest dated 08/20/2018 and approximately 0.[address] abdomen 08/19/2018. These nodular densities were not visualized on exam dated 2011. No new areas of consolidation. No masses, no nodules. Left: Stable mild apical pleural parenchymal scarring. Stable linear scarring in the lingula (series 3, image 70). * Interval decrease in size of 1.9 x 1.7 cm slightly spiculated nodular density in the posteromedial left lower lobe (series 3, image 86 and sagittal image 91), which previously measured approximately 2.[address] chest dated 08/20/2018. There are vessels and small airways which curve toward this lesion. This lesion is directly superior to a left posterior fat-containing diaphragmatic hernia Stable linear atelectatic changes in the medial left lower lobe secondary to cardiac enlargement. Central airways are clear, without endobronchial lesions. PLEURA: No pneumothorax or pleural effusions. Stable small fat-containing left posterior diaphragmatic hernia (sagittal image 87). Stable tiny right posterior fat-containing diaphragm hernia versus focal pleural thickening (series 2, image 88 and sagittal image 44) HEART AND MEDIASTINUM: The thyroid gland is normal. Stable moderate cardiomegaly with enlargement of the left atrium and left ventricle. Vascular calcification of the coronary arteries and moderate calcification of the thoracic aortic arch. Stable aneurysmal dilation of the ascending thoracic aorta, which measures approximately 5.0 x 4.9 cm. Enlarged main pulmonary artery, which measures 3.3 cm. Patulous esophagus, with intraluminal debris noted in its distal two thirds. LYMPH NODES: Stable calcified right upper paratracheal lymph node. No mediastinal or axillary adenopathy. Difficult to assess for hilar adenopathy given the lack of intravenous contrast. ABDOMEN: Limited unenhanced views of the upper abdomen show no abnormality within the visualized spleen, pancreas, or kidneys. Stable fluid density hepatic cysts. The adrenal glands are normal. BONES AND SOFT TISSUES: No aggressive lytic lesions. Stable age indeterminate compression fractures of the T9 and T12 vertebral bodies. Generalized osteopenia. IMPRESSION: 1. Interval decrease in size of spiculated nodular density in the posteromedial left lower lobe consistent with focal/round atelectasis. 2. No significant interval change in right lower lobe groundglass opacities, with slight interval increase in size of several parenchymal pulmonary nodular densities and waxing and waning size of diaphragmatic subpleural nodular densities in the right lower lobe when compared to prior CTs. Given the presence of impacted bronchioles, the findings suggest inflammatory or infectious etiology. Chronic aspiration is a consideration, particularly given the patulous esophagus with intraluminal contents. Recommend follow-up noncontrast chest CT in 6 months. 3. A 1.3 cm posterior right lower lobe subpleural density is more conspicuous than on prior exams, however, the associated curvilinear bronchiectasis in its periphery is highly suggestive of round atelectasis. 4. Stable moderate cardiomegaly and aneurysmal dilation of the ascending thoracic aorta. 5. Stable enlargement of the main pulmonary artery, consistent with pulmonary hypertension. Signed by: Dr. Nixon Orellana M.D. on 12/05/2018 3:11 PM
== END ==
LOC: CT 09:41
PROVIDERS: ATTEND Otolaryngology
DX: R91.8 Other nonspecific abnormal finding of lung field (principal)
CPT/HCPCS: 71250